=== PATIENT | male | born 1945 | race Caucasian/White ===

== ENCOUNTER → 2017-10-25 08:52 | Day surgery (SDC) | payer MEDICARE, OTHER, SELFPAY ==
--- NOTE | 2017-10-19 10:59 | RAD_ITS ---
STUDY: X-RAY CHEST REASON FOR EXAM: Male, 72 years old. Pacemaker change. TECHNIQUE: PA and lateral views of the chest. COMPARISON: None. FINDINGS: Increased interstitial markings at the lung bases slightly worse on the left side suggestive of scarring. No focal infiltration is seen. Scattered calcified granulomas. There is no demonstrated pleural abnormality. Sternal cerclage wires and vascular clips are present from a prior sternotomy and coronary artery bypass graft procedure (CABG). A left-sided dual-chamber pacemaker is seen. Normal mediastinum and isela. Normal visualized pulmonary arteries. There is atherosclerotic tortuosity of the aortic arch and descending thoracic aorta. There are degenerative changes of the visualized thoracic spine. Normal visualized ribs, clavicles, and shoulders. There is no demonstrated abnormality of the visualized soft tissue structures of the upper abdomen. RAD/Chest PA and Lateral IMPRESSION: Findings suggestive of scarring at the lung bases. Electronically Signed: Ambrosio Mckeon MD at 13:56 EDT Tel [phone], Service support ,
[2017-10-19 11:16] LABS: Bacteria 0 SEEN /hpf (None Seen); Mucous, Urine 0 SEEN /hpf (<or=2+); Red Blood Cells-Urine 0 SEEN /hpf (0-5); Squamous Epithelial Cells - UA 0 SEEN /hpf (0-5)
[2017-10-19 11:54] LABS: Hematocrit 42.1 % (40-54); Hemoglobin 14.1 g/dl (13.0-16.5); Mean Corp Hgb Conc 33.5 g/gl (32-36); Mean Corpuscular Hgb 30.3 pg (27.0-32.0); Mean Corpuscular Volume 90.5 fL (80-94); Mean Platelet Vol. 11.2 fl (6.2-12.0); Platelet Count 144 K/mm3 (150-450); RBC Distribution Width CV 12.7 % (11.6-14.6); RBC Distribution Width SD 41.4 fl (35.1-43.9); Red Blood Count 4.65 M/mm3 (4.6-6.2); Scan Indicated on CBC? Y/N NO; White Blood Count 7.8 K/mm3 (4.4-11.0)
[2017-10-19 11:55] LABS: Color, Urine Yellow (Yellow); Glucose, Dipstick Normal (Normal); Ketone-Dipstick Negative (Negative); Leukocyte Esterase-Dipstick 25 /ul (Negative); Nitrite-Dipstick Negative (Negative); Occult Blood-Urine Negative /ul (Negative); Protein-Dipstick 15 mg/dl (Negative); Urine Bilirubin Dipstick Negative (Negative); Urine Clarity Clear (Clear); Urine Urobilinogen Normal (Normal)
[2017-10-19 12:00] LABS: White Blood Cells 0-5 SEEN /hpf (0-5)
[2017-10-19 12:04] LABS: International Normalized Ratio 1.1; Prothrombin Time (Protime)PT. 14.5 SECONDS (11.7-14.9)
[2017-10-19 12:17] LABS: Anion Gap 4 (5-15); BUN 14 mg/dL (7-18); BUN/Creat Ratio 16.1 RATIO (10-20); Calcium,Total 9.1 mg/dL (8.5-10.1); Chloride 107 mmol/L (98-107); Creatinine, Serum 0.87 mg/dL (0.70-1.30); EST Glomerular Filtration Rate 92 mL/min (>60); Est Glom Filt Rate - Afr Amer 112 mL/min (>60); Glucose 134 mg/dL (74-106); Sodium Level 143 mmol/L (136-145)
[2017-10-22 11:15] VITALS: BMI 25.5
--- NOTE | 2017-10-25 11:47 | CL.IE_ITS ---
Patient: MARTIN GOFF Study Date: 10/25/2017 Performing: Neto Almeida MD : [id number] Age: 72 Gender: male PROCEDURES PERFORMED [id number] REMOVAL+REPLACEMENT PACER-DUAL LEAD INDICATIONS Sinoatrial node dysfunction/Sick sinus syndrome PROCEDURE DETAILS The patient was brought to the Catheterization Lab in the postabsorptive nonsedated state. Informed consent was obtained prior to the procedure. Local anesthetic was given subcutaneously to the left up per chest area with Lidocaine 2%. Incision was made to the left upper chest. PPM generator was remove d. PPM generator was then interrogated by the lead programmer. Device pocket was irrigated with antibiotic . PPM generator was attached to the lead(s) and inserted into the pocket. The PPM generator was sutur ed in place with 3-0 Vicryl. Subcutaneous closure was completed with 3-0 Vicryl. Skin closure was com pleted with 4-0 Vicryl. Steri-strips applied to left subclavicular incision. The patient tolerated t he procedure well. Estimated Blood Loss: 10 ml's IMPLANTED / EX-PLANTED DEVICES IMPLANTED DEVICE(S): PPM Generator - Ticket Broker: Tr[employer], Model #[id number] , Serial #[id number] DEVICE PARAMETERS DEVICE PARAMETERS: Mode- DDD Lower rate- 60 Upper rate- 130 CONCLUSIONS / RECOMMENDATIONS Device Conclusions: Successful implantation of a dual chamber pacemaker battery change and replacemen t Device Recommendations: Follow up with Primary Care Physician PROCEDURE MEDICATIONS Versed 1 mg IV Fentanyl 50 mcg IV Oxygen: 2 L/min via nasal cannula Antibiotic given in appropriate timeframe. Ancef 2 Gm IV @ 10/25/2017 10:52:40 Signed By Neto Almeida MD On 10/25/2017 11:46:43 Neto Almeida MD
== END ==
PROVIDERS: Internal Medicine Cardiovascular Disease; Visit Provider Internal Medicine Cardiovascular Disease
DX: Z45.010 Encounter for checking and testing of cardiac pacemaker pulse generator [battery] (principal); I25.10 Atherosclerotic heart disease of native coronary artery without angina pectoris; E78.5 Hyperlipidemia, unspecified; I49.5 Sick sinus syndrome; Z87.891 Personal history of nicotine dependence; Z95.1 Presence of aortocoronary bypass graft; Z79.82 Long term (current) use of aspirin; Z79.899 Other long term (current) drug therapy; Z00.6 Encounter for examination for normal comparison and control in clinical research program
CPT/HCPCS: 33228; 36415; 71046; 80048; 81001; 85027; 85610; 99152; 99153; J7040; J7050

== ENCOUNTER 2021-06-13 18:24 | Emergency (ER) | payer MEDICARE, OTHER, SELFPAY ==
[2021-06-13 18:24] VITALS: BP 143/85; PULSE 71; RESP 15; TEMP 36; O2SAT 95; BMI 22.9
--- NOTE | 2021-06-13 18:34 | RAD_ITS ---
STUDY: X-RAY - LEFT HAND, ATTENTION FIFTH FINGER REASON FOR EXAM: Male, 76 years old. LACERATION WITH BANDSAW TECHNIQUE: 3 view(s) of the finger were obtained. COMPARISON: June 15, 2015 FINDINGS: A small acute oblique nondisplaced fracture is present in the distal one third shaft of the proximal phalanx of the fifth digit. The soft tissues of the fourth and fifth digits are mildly swollen. Normal metacarpal head. Normal metacarpophalangeal joint. Normal middle phalanx. Normal distal phalanx. Normal proximal interphalangeal joint. Normal distal interphalangeal joint. RAD/Finger(s) Min 2 Views IMPRESSION: 1. small acute oblique nondisplaced fracture in the distal one third shaft of the proximal phalanx of the fifth digit. Electronically Signed: Eric Corado MD at 19:10 EST , Service support ,
[2021-06-13] MEDS: Cephalexin 250 MG Capsule 500 MG PO (19:51)
[2021-06-13] MEDS: Diphth,Pertuss(Acell),Tet Vac 0.5 ML Vial IM (19:51)
--- NOTE | 2021-06-13 20:17 | EDS_ITS ---
HPI History of Present Illness Chief Complaint: Laceration Detail of Chief Complaint: Left fifth finger laceration Informant: patient Occured/Mechanism Comment: Cut on band saw Onset/Context/Timing Onset: Today Current Severity: Mild Maximum Severity: Mild Associated Symptoms Associated Symptoms: Negative for Parasthesia, Weakness and Loss of Funtion Narrative Narrative: Patient presents with a laceration to the left fifth finger. He was cutting out a piece of wood on a band saw. He states it got bound up and he pushed it through and got his hand caught on the blade. He is unsure of his last tetanus update. He is right-hand dominant. Tetanus Immunization: Unknown [facility] Medical History Atherosclerotic heart disease of [place] coronary artery without angina pectoris Hyperlipidemia Sick sinus syndrome Home Medications aspirin 81 mg tablet,delayed release 81 mg PO QDAY 07/09/17 [History Last Taken Unknown] atenolol 50 mg tablet 50 mg PO BID tab 07/09/17 [History Last Taken 10/25/17] atorvastatin 40 mg tablet 40 mg PO QDAY 07/09/17 [History Last Taken Unknown] losartan 50 mg tablet 50 mg PO QDAY 07/09/17 [History Last Taken 10/25/17] omega-3 acid ethyl esters 1 gram capsule 1 g PO QDAY 07/09/17 [History Last Taken Unknown] escitalopram oxalate 10 mg tablet 10 mg PO QDAY 07/12/17 [History Last Taken Unknown] faleycgs-fhl-niyqy acid 300 mcg-lycopene 600 mcg-lutein 300 mcg tablet 1 tab PO DAILY 07/12/17 [History Last Taken Unknown] bupropion HCl 150 mg tablet,12 hr sustained-release 150 mg PO DAILY tab 06/10/20 [History Last Taken Unknown] sildenafil 50 mg tablet 25 mg PO DAILY PRN #14 tab 06/10/20 [Rx Last Taken Unknown] tamsulosin 0.4 mg capsule 0.4 mg PO QHS 06/10/20 [History Last Taken Unknown] cholecalciferol (vitamin D3) 125 mcg (5,000 unit) tablet 125 mcg PO DAILY 12/16/20 [History Last Taken Unknown] cephalexin 500 mg PO 4X/DAY 7 Days #28 cap 06/13/21 [Rx Last Taken Unknown] Allergy/AdvReac Type Severity Reaction Status Date / Time Lisiniopril AdvReac Intermediate cough Uncoded 06/13/21 18:26 Family History Father , Age 76 Myocardial infarction CAD (coronary artery disease) Mother , Age 63, breast cancer Breast cancer Sister Diabetes benign tumor in brain removed Surgical History Cardiac pacemaker in situ History of coronary artery bypass graft x 3 (~10/16/90) History of left heart catheterization Stented coronary artery (~06/29/12) Social History Smoking Status: Former smoker pack-years: 25 alcohol intake: current alcohol intake frequency: holidays/special occasions only substance use type: does not use caffeine: Yes Type: coffee Number of servings: 2 what type of physical activity do you participate in: none ROS ROS ED Constitutional Constitutional ED: Denies chills or fever(s) Eyes Eyes: Denies change in vision ENT ENT ED: Denies sore throat Cardiovascular Cardiovascular: Denies chest pain Respiratory/Chest Respiratory/Chest: Denies cough or dyspnea Gastrointestinal Gastrointestinal: Denies abdominal pain Musculoskeletal Musculoskeletal: Reports other Details: Left fifth finger pain ; Denies back pain Integumentary Reports other Details: Left fifth finger laceration ; Denies rash Neurologic Neurologic: Denies headache(s), paresthesias or weakness Allergic/Immunologic Allergic/Immunologic ED: Denies urticaria EXAM Physical Exam Const Vital Signs: 06/13/21 18:24 Temperature 96.8 F L Temperature Source Temporal Pulse Rate 71 Respiratory Rate 15 Blood Pressure 143/85 H Blood Pressure Mean 104 Pulse Ox 95 Oxygen Delivery Method Room Air Positive well nourished and well developed General Appearance ED: well developed HEENT atraumatic Eyes PERRL and EOMs intact bilaterally Neck supple Chest Wall inspection of chest normal and palpation of chest normal Resp normal respiratory effort and clear to auscultation bilaterally Cardio regular rate and regular rhythm GI non-tender Palpation: soft Extremity Extremity Narrative: 3 cm laceration along the ulnar aspect of the left fifth finger. Full range of motion of all digits. Good cap refill and sensation distally. Neuro oriented x3 and no sensory deficits noted Sensorium / Orientation: alert Motor Exam: strength 5/5 throughout Skin Skin Narrative: Laceration as noted above MDM MDM MDM Narrative Medical decision making narrative: Finger x-ray obtained per nursing protocol. Tetanus update ordered Radiography Diagnostic Testing: Clinical Impression(s) from Imaging Studies Finger X-Ray 06/13/21 18:34 IMPRESSION: 1. small acute oblique nondisplaced fracture in the distal one third shaft of the proximal phalanx of the fifth digit. Electronically Signed: Eric Corado MD at 19:10 EST , Service support , Treatment and Re-Evaluation Comments:: Patient does have evidence of bony injury on x-ray. Wound is anesthetized with 5 cc 1% lidocaine in a digital block. Wound is irrigated and closed with 9 simple interrupted sutures of 5-0 nylon. Dressing applied. Patient advised to have sutures removed in 1 week. Patient will be covered with Keflex secondary to the bony injury. Procedures Lacerations Left fifth finger laceration: Length: 1.18 in Depth: Sub Q Shape: Flap Prep: Vijay Laceration repair: Digital block, Irrigated and Lidocaine Number of Sutures/Dunnegan: 9 Suture Information: Ethilon, Simple and 5-0 Discharge Plan Triage Chief Complaint: Laceration ED Provider: Melanie Brown Dx/Rx/DC Orders Clinical Impression: Finger laceration Instructions: ED Laceration, Hand: All Closures Prescriptions: New cephalexin 500 mg capsule 500 mg PO 4X/DAY 7 Days Qty: 28 RF: 0 No Action atenolol 50 mg tablet 50 mg PO BID RF: 0 aspirin [Adult Aspirin Regimen] 81 mg tablet,delayed release (DR/EC) 81 mg PO QDAY RF: 0 losartan 50 mg tablet 50 mg PO QDAY RF: 0 omega-3 acid ethyl esters 1 gram capsule 1 g PO QDAY RF: 0 atorvastatin 40 mg tablet 40 mg PO QDAY RF: 0 bupropion HCl 150 mg tablet sustained-release 12 hr 150 mg PO DAILY RF: 0 mcagtszp-upy-FV-lycopen-lutein [Centrum Silver Men] 300-600-300 mcg tablet 1 tab PO DAILY RF: 0 escitalopram oxalate 10 mg tablet 10 mg PO QDAY RF: 0 tamsulosin 0.4 mg capsule 0.4 mg PO QHS RF: 0 sildenafil [Viagra] 50 mg tablet 25 mg PO DAILY PRN (Reason: sexual activity) Qty: 14 RF: 3 cholecalciferol (vitamin D3) 125 mcg (5,000 unit) tablet 125 mcg PO DAILY RF: 0 [facility] [facility] [Primary [facility] Provider] - 7 Days for suture removal Disposition Disposition: Home, Self Care Discharge Date/Time: 06/13/21 20:46
[2021-06-13] MEDS: Lidocaine 1% (20 ml mdv) 20 ML Vial INFILT (20:38)
== END 2021-06-13 20:46 | disposition home or self-care (01) ==
PROVIDERS: Emergency Provider Emergency Medicine; Visit Provider Emergency Medicine
DX: S61.217A Laceration without foreign body of left little finger without damage to nail, initial encounter (principal); I49.5 Sick sinus syndrome; E78.5 Hyperlipidemia, unspecified; Z87.891 Personal history of nicotine dependence; I25.10 Atherosclerotic heart disease of native coronary artery without angina pectoris; W29.8XXA Contact with other powered hand tools and household machinery, initial encounter; Y93.9 Activity, unspecified; Y92.9 Unspecified place or not applicable; Z79.899 Other long term (current) drug therapy; Z79.82 Long term (current) use of aspirin; Z95.1 Presence of aortocoronary bypass graft; Z95.0 Presence of cardiac pacemaker; Z23 Encounter for immunization; S62.637A Displaced fracture of distal phalanx of left little finger, initial encounter for closed fracture
CPT/HCPCS: 12002; 73140; 90471; 90715; 99283

== ENCOUNTER 2021-09-15 06:42 | Inpatient (IN) | payer MEDICARE, OTHER, SELFPAY ==
[2021-09-15] VITALS (17 sets, daily range): BP systolic 86–139; BP diastolic 57–95; PULSE 60–91; RESP 12–18; TEMP 36.4–37.1; O2SAT 96–100; BMI 23.6
--- NOTE | 2021-09-15 07:12 | EKG12_ITS ---
Test Reason : CHEST PAIN Blood Pressure : / mmHG Vent. Rate : 075 BPM Atrial Rate : 072 BPM P-R Int : 312 ms QRS Dur : 110 ms QT Int : 426 ms P-R-T Axes : 000 -03 054 degrees QTc Int : 475 ms Atrial-paced rhythm with prolonged AV conduction with occasional Premature ventricular complexes Nonspecific ST and T wave abnormality Prolonged QT Abnormal ECG Confirmed by KEVIN LYNN, VALERIANO ([id number]), supervising editor news reel GEMA AMADOR ([id number]) on 09/17/2021 11:33:52 AM Referred By: VISH Confirmed By:VALERIANO BROWN MD
--- NOTE | 2021-09-15 07:16 | RAD_ITS ---
INDICATION: chest pain EXAMINATION/TECHNIQUE: X-RAY - XR Chest 1 View COMPARISON: 10/19/2017 FINDINGS: LINES/DEVICES: Left chest dual-lead pacemaker remains in similar position. LUNGS: Bilateral increased peripheral interstitial markings, similar compared to the prior. No consolidation, edema or effusion. No pneumothorax. MEDIASTINUM AND CARDIOVASCULAR STRUCTURES: Surgical changes in the mediastinum again seen. BONES AND SOFT TISSUES: Unremarkable. RAD/Chest 1 View (Portable) IMPRESSION: Bilateral increased peripheral interstitial markings, similar compared to the prior, likely representing chronic interstitial fibrotic changes are chronic inflammatory changes. Electronically Signed: Carl Coello MD at 7:47 EDT ,
--- NOTE | 2021-09-15 07:17 | EDS_ITS ---
HPI History of Present Illness Chief Complaint: Chest Pain Informant: patient Onset/Context/Timing Onset: Hours (0.5-1) Activity at onset: - (Awoke this morning with Discomfort) Timing: Continuous Quality: Positive for Pain Location: Left Chest Current Severity: Mild Maximum Severity: Severe Worsened By: Nothing; Not Worsened By Exertion, Movement of Arm, Movement of Torso, Eating, Palpation and Breathing Relieved By: Nothing (unclear if anything in particular) Associated Symptoms: Positive for Diaphoresis (this AM); Negative for Nausea, Vomiting, Dyspnea, Cough, Lightheadedness and Palpitations Narrative Narrative: Patient states he has been having these episodes of isolated left lateral chest discomfort near or beneath his pacemaker for months and I have learned to live with it but this morning the discomfort was so intense that it made him feel a little sweaty and he presents to the emergency department for evaluation out of concern for his history of coronary disease and a bypass that was around 30 years ago. No recent illness. 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 He states the discomfort has lessened now, but still there very mildly. He states that the discomfort does not occur very frequently, maybe once every couple weeks or a month, and he is not sure if position changes make it better or worse, if it occurs more at nighttime or during the day more often. Prior Similar Symptoms: Yes Recent Illness/Hospitalization: No [facility] Medical History (Updated 09/15/21 @ 10:[address] Jamarcus Michael MD) Atherosclerotic heart disease of [place] coronary artery without angina pectoris Hyperlipidemia Sick sinus syndrome Home Medications aspirin 81 mg tablet,delayed release 81 mg PO QHS 07/09/17 [History Last Taken Unknown] atenolol 50 mg tablet 50 mg PO BID tab 07/09/17 [History Last Taken 10/25/17] atorvastatin 40 mg tablet 40 mg PO QHS 07/09/17 [History Last Taken Unknown] losartan 50 mg tablet 50 mg PO QHS 07/09/17 [History Last Taken 10/25/17] omega-3 acid ethyl esters 1 gram capsule 1 g PO QHS 07/09/17 [History Last Taken Unknown] escitalopram oxalate 10 mg tablet 10 mg PO DAILY 07/12/17 [History Last Taken Unknown] nmerhvqt-sha-secyu acid 300 mcg-lycopene 600 mcg-lutein 300 mcg tablet 1 tab PO DAILY 07/12/17 [History Last Taken Unknown] bupropion HCl 150 mg tablet,12 hr sustained-release 150 mg PO DAILY tab 06/10/20 [History Last Taken Unknown] tamsulosin 0.4 mg capsule 0.4 mg PO QHS 06/10/20 [History Last Taken Unknown] cholecalciferol (vitamin D3) [Vitamin D3] 25 mcg PO QHS 09/15/21 [History Last Taken Unknown] fluticasone propionate 2 spray INTRANASAL DAILY 09/15/21 [History Last Taken Unknown] Allergy/AdvReac Type Severity Reaction Status Date / Time Lisiniopril AdvReac Intermediate cough Uncoded 09/15/21 06:46 Family History Father , Age 76 Myocardial infarction CAD (coronary artery disease) Mother , Age 63, breast cancer Breast cancer Sister Diabetes benign tumor in brain removed Surgical History Cardiac pacemaker in situ History of coronary artery bypass graft x 3 (~10/16/90) History of left heart catheterization Stented coronary artery (~06/29/12) Social History Smoking Status: Former smoker pack-years: 25 alcohol intake: current alcohol intake frequency: holidays/special occasions only substance use type: does not use caffeine: Yes Type: coffee Number of servings: 2 what type of physical activity do you participate in: none ROS ROS ED Constitutional Constitutional ED: Denies chills or fever(s) Eyes Eyes: Denies change in vision or diplopia ENT ENT ED: Denies rhinorrhea or sore throat Cardiovascular Cardiovascular: Reports chest pain; Denies palpitations Respiratory/Chest Respiratory/Chest: Denies cough or dyspnea Gastrointestinal Gastrointestinal: Denies abdominal pain, diarrhea, nausea or vomiting Genitourinary Genitourinary ED: Denies dysuria or hematuria Musculoskeletal Musculoskeletal: Denies back pain or neck pain Integumentary Denies abscess or rash Neurologic Neurologic: Denies headache(s), paresthesias or weakness Psychiatric Psychiatric: Denies anxiety or suicidal thoughts EXAM Physical Exam Const Vital Signs: 09/15/21 06:43 09/15/21 06:46 09/15/21 07:30 Temperature 97.5 F L Temperature Source Oral Pulse Rate 91 65 Respiratory Rate 18 Respiratory Effort Normal Non-Labored Respiratory Pattern Normal Blood Pressure 132/95 H 116/75 Blood Pressure Mean 107 88 Pulse Ox 98 Oxygen Delivery Method Room Air Oxygen Flow Rate (L/min) 09/15/21 07:32 09/15/21 08:00 09/15/21 08:14 Temperature Temperature Source Pulse Rate 70 61 Respiratory Rate Respiratory Effort Respiratory Pattern Blood Pressure 137/77 H 130/76 H Blood Pressure Mean 97 Pulse Ox 97 98 Oxygen Delivery Method Room Air Room Air Oxygen Flow Rate (L/min) 09/15/21 08:27 09/15/21 09:00 09/15/21 10:00 Temperature Temperature Source Pulse Rate 63 60 Respiratory Rate 12 13 Respiratory Effort Respiratory Pattern Blood Pressure 97/70 106/75 116/83 H Blood Pressure Mean 79 85 94 Pulse Ox 96 99 Oxygen Delivery Method Nasal Cannula Nasal Cannula Oxygen Flow Rate (L/min) 2 2 Positive well nourished and well developed General Appearance ED: well developed and NAD HEENT Reports moist mucous membranes normocephalic and atraumatic Eyes PERRL and EOMs intact bilaterally Neck full ROM and supple Resp normal respiratory effort and clear to auscultation bilaterally Cardio regular rate, regular rhythm, no murmurs and no JVD Rate: Negative for bradycardia or tachycardic GI non-tender and non-distended Auscultation: normoactive bowel sounds Palpation: soft Back/Spine no CVA tenderness General Back: other FROM Extremity normal to inspection, no calf tenderness and no pedal edema General Extremety ED: Negative for edema, pulses abnormal or tenderness General Extremity: Negative for edema or pulses abnormal Neuro oriented x3, CN's II-XII intact bilaterally and no sensory deficits noted Sensorium / Orientation: awake and alert Motor Exam: strength 5/5 throughout Skin no rashes or lesions noted and no wounds Heart Score History: Slightly/Non-Suspicious ECG: Nonspecific Repolarization Age: >/= 65 years Risk Factors: >/= 3 Risk Factors or History of CAD Troponin: >1 - <3 Normal Limit Score: 6 MDM MDM MDM Narrative Medical decision making narrative: ThePatient was given aspirin while we were awaiting testing, his pain then ramped up about an hour after initial evaluation, he said it was an 8/10. We repeated his EKG, did not show any acute signs of ischemia or changes compared with the prior, the second EKG was of better quality than the first. We gave him a nitroglycerin sublingual, he st ates the pain improved to a 6/10 but his systolic blood pressure went down to 97 although he was asymptomatic from it we held off on giving any more nitroglycerin since he was clinically stable otherwise. His troponin is slightly elevated. I discussed with cardiology, Dr. Almeida was on. He advise getting the delta and touching base again which we did, troponin went up from 89 to 118. The second EKG which was performed when his chest discomfort got worse, was unchanged, he ended up taking me up on an offer for some morphine, he still had chest discomfort, but the third EKG is showing some ST depressions in the septal lateral leads precordial. I discussed again with Dr. Almeida, we decided to give him some nitroglycerin paste, put him on a heparin drip, and admit him to PCU for further evaluation. Lab Data Attestation: I reviewed the patient's lab results. Labs: Laboratory Results - last 24 hr 09/15/21 09/15/21 09/15/21 06:55 06:55 06:55 WBC 8.4 RBC 4.85 Hgb 15.0 Hct 43.6 MCV 89.9 MCH 30.9 MCHC 34.4 RDW Std Deviation 39.9 RDW Coeff of Hannah 12.2 Plt Count 161 MPV 11.3 Immature Gran % (Auto) 0.200 Neut % (Auto) 54.7 Lymph % (Auto) 30.7 [place] % (Auto) 11.6 H Eos % (Auto) 2.3 Baso % (Auto) 0.5 Absolute Neuts (auto) 4.6 Absolute Lymphs (auto) 2.56 Nucleated RBC % 0 Sodium 136 Potassium 4.5 Chloride 107 Carbon Dioxide 26.0 Anion Gap 3 L BUN 18 Creatinine 0.97 Estim Creat Clear Calc 68.99 Est GFR (MDRD) Af Amer 97 Est GFR (MDRD) Non-Af 81 BUN/Creatinine Ratio 18.6 Glucose 135 H Calcium 8.9 Troponin I High Sens 89 H 09/15/21 09:50 WBC RBC Hgb Hct MCV MCH MCHC RDW Std Deviation RDW Coeff of Hannah Plt Count MPV Immature Gran % (Auto) Neut % (Auto) Lymph % (Auto) [place] % (Auto) Eos % (Auto) Baso % (Auto) Absolute Neuts (auto) Absolute Lymphs (auto) Nucleated RBC % Sodium Potassium Chloride Carbon Dioxide Anion Gap BUN Creatinine Estim Creat Clear Calc Est GFR (MDRD) Af Amer Est GFR (MDRD) Non-Af BUN/Creatinine Ratio Glucose Calcium Troponin I High Sens 118 H Radiography Diagnostic Testing: Clinical Impression(s) from Imaging Studies Chest X-Ray 09/15/21 07:16 IMPRESSION: Bilateral increased peripheral interstitial markings, similar compared to the prior, likely representing chronic interstitial fibrotic changes are chronic inflammatory changes. Electronically Signed: Carl Coello MD at 7:47 EDT , Rhythm Strip Rhythm Strip: Sinus Rhythm (vs atrial pacing) Rate: 70 Ectopy: None EKG Initial EKG: Attestation: I personally reviewed and interpreted this EKG as follows: Interpretation: No Acute Injury Pattern, AV Block (1st deg) and Non- Specific ST Changes (vs. artifact I/aVL; no ST segment deviations) Comments: atrial pacing Prior EKG tracings: available for review (2018) Prior: Changed (but prior appears to have ventricular pacing) Follow-up EKG: Attestation: I personally reviewed and interpreted this EKG as follows: Interpretation: No Acute Injury Pattern (No ST segment deviations. No ectopy.) Comments: Atrial paced Prior EKG tracings: available for review (Approximately 1 hour prior) Prior: Unchanged 3rd EKG at time of 2nd tpn: Attestation: I personally reviewed and interpreted this EKG as follows: Interpretation: Paced (atrial) and S-T Depression (< 1mm, V3-5, without LUANNE) Critical Care Time Critical Care Time: Yes Critical care time (excluding procedures): 30-74 minutes (32 min), Including time spent:, Discussing w/Patient &/or Family/Shuttlecock Feather Trimmer, Discussing w/Consultants, Arranging Admission or Transfer and Performing Direct Patient Care at Bedside Discharge Plan Dx/Rx/DC Orders Clinical Impression: Unstable angina Disposition Disposition: Acute Care [facility]
[2021-09-15 07:28] LABS: Absolute Lymphocyte Count 2.56 X10^3/uL (0.83-4.51); Absolute Neutrophil Count 4.6 X10^3/uL (2.0-7.7); Basophil# 0.04 X10^3/uL; Basophil% 0.5 % (0-1); Eosinophil# 0.19 X10^3/uL; Eosinophils% 2.3 % (0-5); Hematocrit 43.6 % (40-54); Lymphocyte # 2.56 X10^3/ul (0.83-4.51); Lymphocyte % 30.7 % (19-41); Mean Corp Hgb Conc 34.4 g/dL (32-36); Mean Corpuscular Hgb 30.9 pg (27.0-32.0); Mean Corpuscular Volume 89.9 fL (80-94); Mean Platelet Vol. 11.3 fl (6.2-12.0); Monocyte# 0.97 X10^3/uL; Monocyte% 11.6 % (0-10); NRBC Flagged by Analyzer 0 % (0-5); Neutrophil # 4.57 X10^3/uL (2.7-7.7); Neutrophil % 54.7 % (47-70); Platelet Count 161 K/mm3 (150-450); RBC Distribution Width CV 12.2 % (11.6-14.6); RBC Distribution Width SD 39.9 fl (35.1-43.9); Red Blood Count 4.85 M/mm3 (4.6-6.2); White Blood Count 8.4 K/mm3 (4.4-11.0)
[2021-09-15] MEDS: Aspirin 81 MG TAB.CHEW 324 MG PO (07:30)
[2021-09-15 07:40] LABS: Anion Gap 3 (5-15); BUN 18 mg/dL (7-18); BUN/Creat Ratio 18.6 RATIO (10-20); Calcium,Total 8.9 mg/dL (8.5-10.1); Chloride 107 mmol/L (98-107); Creatinine, Serum 0.97 mg/dL (0.70-1.30); EST Glomerular Filtration Rate 81 mL/min (>60); Est Glom Filt Rate - Afr Amer 97 mL/min (>60); Estimated Creatinine Clearance 68.99 ml/min; Glucose 135 mg/dL (74-106); Potassium 4.5 mmol/L (3.5-5.1); Sodium Level 136 mmol/L (136-145)
[2021-09-15 08:06] LABS: Troponin-I HS (w/2H Reflex) 89 pg/mL (3.0-78.0)
--- NOTE | 2021-09-15 08:07 | EKG12_ITS ---
Test Reason : CHEST PAIN Blood Pressure : / mmHG Vent. Rate : 061 BPM Atrial Rate : 061 BPM P-R Int : 314 ms QRS Dur : 108 ms QT Int : 432 ms P-R-T Axes : 000 -08 060 degrees QTc Int : 434 ms Atrial-paced rhythm with prolonged AV conduction Nonspecific ST abnormality Abnormal ECG Confirmed by KEVIN LYNN, VALERIANO ([id number]), associate entertainment editor GEMA AMADOR ([id number]) on 09/17/2021 11:34:11 AM Referred By: VISH Confirmed By:VALERIANO BROWN MD
[2021-09-15] MEDS: Nitroglycerin SL (ED/IMG/CATH) 0.4 MG TABLET SL (08:14)
--- NOTE | 2021-09-15 08:16 | ED.RN ---
Pt c/o 01/14 LT sided chest pain. No radiation, no shortness of breath. VSS. Dr Michael made aware. EKG obtained. Nitro SL x1 given.
--- NOTE | 2021-09-15 08:27 | ED.RN ---
Pt rates chest pain 6/10, states Nitro helped. Dr Michael in room to update pt on plan. VSS.
[2021-09-15 09:45] LABS: Reflex Troponin-HS? (from REC) Y
[2021-09-15] MEDS: Morphine 2 MG/ML Syringe IV (10:15)
[2021-09-15 10:29] LABS: Troponin-I HS 118 pg/mL (3.0-78.0)
[2021-09-15 11:37] LABS: International Normalized Ratio 1.1; Prothrombin Time (Protime)PT. 13.6 SECONDS (11.7-14.9)
[2021-09-15] MEDS: Heparin 10,000 UNITS/10 ML Vial 4000 UNITS IV (11:41)
[2021-09-15] MEDS: Nitroglycerin Oint 1 INCH PACKET TD (11:42)
[2021-09-15 11:49] LABS: Partial Thromboplast Time 29.5 Seconds (24.1-36.2)
--- NOTE | 2021-09-15 13:13 | PCM.HP.STD ---
Documented by User: Margareth Blevins NP, NURSING TECHNICIAN-C 09/15/21 13:34 HPI - General General Date of Admission: 09/15/21 HPI Narrative MARTIN GOFF, is a 76 M who presents to the emergency room due to chest pain. Patient states he has had intermittent chest pain for years however when he woke up this morning, his pain was significantly worse than normal. He reports a burning/pressure sensation which is currently 8 out of 10. Pain does not radiate. He reports consistent pain on the left side of his chest. He denies shortness of breath, diaphoresis or other associated symptoms. He denies any aggravating or alleviating factors. Pain is continuous. He has a past medical history of CAD with history of PCI/CABG, sick sinus syndrome status post pacemaker placement, hypertension, hyperlipidemia, depression/anxiety, BPH. [facility] Medical History Atherosclerotic heart disease of [place] coronary artery without angina pectoris Hyperlipidemia Sick sinus syndrome Home Medications aspirin 81 mg tablet,delayed release 81 mg PO QHS 07/09/17 [History Last Taken Unknown] atenolol 50 mg tablet 50 mg PO BID tab 07/09/17 [History Last Taken 10/25/17] atorvastatin 40 mg tablet 40 mg PO QHS 07/09/17 [History Last Taken Unknown] losartan 50 mg tablet 50 mg PO QHS 07/09/17 [History Last Taken 10/25/17] omega-3 acid ethyl esters 1 gram capsule 1 g PO QHS 07/09/17 [History Last Taken Unknown] escitalopram oxalate 10 mg tablet 10 mg PO DAILY 07/12/17 [History Last Taken Unknown] waqdvrzh-ghp-nvawy acid 300 mcg-lycopene 600 mcg-lutein 300 mcg tablet 1 tab PO DAILY 07/12/17 [History Last Taken Unknown] bupropion HCl 150 mg tablet,12 hr sustained-release 150 mg PO DAILY tab 06/10/20 [History Last Taken Unknown] tamsulosin 0.4 mg capsule 0.4 mg PO QHS 06/10/20 [History Last Taken Unknown] cholecalciferol (vitamin D3) [Vitamin D3] 25 mcg PO QHS 09/15/21 [History Last Taken Unknown] fluticasone propionate 2 spray INTRANASAL DAILY 09/15/21 [History Last Taken Unknown] Allergy/AdvReac Type Severity Reaction Status Date / Time Lisiniopril AdvReac Intermediate cough Uncoded 09/15/21 06:46 Family History Father , Age 76 Myocardial infarction CAD (coronary artery disease) Mother , Age 63, breast cancer Breast cancer Sister Diabetes benign tumor in brain removed Surgical History Cardiac pacemaker in situ History of coronary artery bypass graft x 3 (~10/16/90) History of left heart catheterization Stented coronary artery (~06/29/12) Social History Smoking Status: Former smoker pack-years: 25 alcohol intake: current alcohol intake frequency: holidays/special occasions only substance use type: does not use caffeine: Yes Type: coffee Number of servings: 2 what type of physical activity do you participate in: none ROS Constitutional Constitutional: Denies change in weight, chills, fatigue, fever(s) or weakness Cardiovascular Cardiovascular: Reports chest pain; Denies edema, lightheadedness, palpitations or syncope Respiratory/Chest Respiratory/Chest: Denies cough, dyspnea, productive cough, shortness of breath at rest, shortness of breath with exertion or wheezing Gastrointestinal Gastrointestinal: Denies abdominal pain, constipation, diarrhea, nausea or vomiting Genitourinary Genitourinary: Denies burning urination, difficulty urinating, dysuria, hematuria, urinary frequency, urinary incontinence or urinary urgency Musculoskeletal Musculoskeletal: Denies back pain, joint pain or muscle weakness Integumentary Integumentary: Denies erythema, lesions, rash or wounds Neurologic Neurologic: Denies abnormal speech, confusion, dizziness, focal weakness, numbness, paresthesias, seizure-like activity or syncope Psychiatric Psychiatric: Denies anxiety or depression Hematologic/Lymphatic Hematologic/Lymphatic: Denies anemia, easy bleeding or easy bruising Allergic/Immunologic Allergic/Immunologic: Denies hives or asthma Vital Signs Vital Signs Vital Signs: 09/15/21 06:43 09/15/21 06:46 09/15/21 07:30 Temperature 97.5 F L Temperature Source Oral Pulse Rate 91 65 Respiratory Rate 18 Respiratory Effort Normal Non-Labored Respiratory Pattern Normal Blood Pressure 132/95 H 116/75 Blood Pressure [BP] Blood Pressure Mean 107 88 Blood Pressure Mean [BP] Blood Pressure Source [BP] Blood Pressure Position [BP] Blood Pressure Location [BP] Pulse Ox 98 Oxygen Delivery Method Room Air Oxygen Flow Rate (L/min) 09/15/21 07:32 09/15/21 08:00 09/15/21 08:14 Temperature Temperature Source Pulse Rate 70 61 Respiratory Rate Respiratory Effort Respiratory Pattern Blood Pressure 137/77 H 130/76 H Blood Pressure [BP] Blood Pressure Mean 97 Blood Pressure Mean [BP] Blood Pressure Source [BP] Blood Pressure Position [BP] Blood Pressure Location [BP] Pulse Ox 97 98 Oxygen Delivery Method Room Air Room Air Oxygen Flow Rate (L/min) 09/15/21 08:27 09/15/21 09:00 09/15/21 10:00 Temperature Temperature Source Pulse Rate 63 60 Respiratory Rate 12 13 Respiratory Effort Respiratory Pattern Blood Pressure 97/70 106/75 116/83 H Blood Pressure [BP] Blood Pressure Mean 79 85 94 Blood Pressure Mean [BP] Blood Pressure Source [BP] Blood Pressure Position [BP] Blood Pressure Location [BP] Pulse Ox 96 99 Oxygen Delivery Method Nasal Cannula Nasal Cannula Oxygen Flow Rate (L/min) 2 2 09/15/21 11:00 09/15/21 11:42 09/15/21 11:47 Temperature 98.4 F Temperature Source Temporal Pulse Rate 65 63 65 Respiratory Rate 17 12 Respiratory Effort Respiratory Pattern Blood Pressure 139/81 H 124/79 H 139/86 H Blood Pressure [BP] Blood Pressure Mean 100 103 Blood Pressure Mean [BP] Blood Pressure Source [BP] Blood Pressure Position [BP] Blood Pressure Location [BP] Pulse Ox 97 99 Oxygen Delivery Method Nasal Cannula Nasal Cannula Oxygen Flow Rate (L/min) 2 2 09/15/21 11:54 Temperature Temperature Source Pulse Rate 71 Respiratory Rate 18 Respiratory Effort Respiratory Pattern Blood Pressure Blood Pressure [BP] 116/77 Blood Pressure Mean Blood Pressure Mean [BP] 90 Blood Pressure Source [BP] Monitor Blood Pressure Position [BP] Semi-Fowlers Blood Pressure Location [BP] Right Arm Pulse Ox 100 Oxygen Delivery Method Room Air Oxygen Flow Rate (L/min) Weight Weight: 164 lb 3.91 oz Body Mass Index (BMI) 23.6 Physical Exam Const alert, oriented x3 and no apparent distress Orientation / Consciousness: awake, oriented to person, oriented to place and oriented to time HEENT normocephalic and moist oral mucous membranes Eyes PERRL, EOMs intact bilaterally and conjunctivae normal Neck no lymphadenopathy Resp normal respiratory effort and clear to auscultation bilaterally Cardio regular rate, regular rhythm and no murmurs Peripheral Pulses: pulses 2+ throughout GI normal to inspection, nondistended, normoactive bowel sounds, non-tender and non-distended Extremity normal to inspection Skin no rashes or lesions noted Lesions: no lesions Rashes: no rashes Trauma: no lacerations or abrasions Neuro CN's II-XII intact bilaterally, no focal motor deficits, no sensory deficits noted and deep tendon reflexes 2+ bilaterally Psych mental status grossly normal and affect normal Results Lab / Micro Data Result Diagrams: 09/15/21 06:55 09/15/21 06:55 Labs: Laboratory Results - last 24 hr 09/15/21 06:55: WBC 8.4, RBC 4.85, Hgb 15.0, Hct 43.6, MCV 89.9, MCH 30.9, MCHC 34.4, RDW Std Deviation 39.9, RDW Coeff of Hannah 12.2, Plt Count 161, MPV 11.3, Immature Gran % (Auto) 0.200, Neut % (Auto) 54.7, Lymph % (Auto) 30.7, [place] % (Auto) 11.6 H, Eos % (Auto) 2.3, Baso % (Auto) 0.5, Absolute Neuts (auto) 4.6, Absolute Lymphs (auto) 2.56, Nucleated RBC % 0 09/15/21 06:55: Sodium 136, Potassium 4.5, Chloride 107, Carbon Dioxide 26.0, Anion Gap 3 L, BUN 18, Creatinine 0.97, Estim Creat Clear Calc 68.99, Est GFR (MDRD) Af Amer 97, Est GFR (MDRD) Non-Af 81, BUN/Creatinine Ratio 18.6, Glucose 135 H, Calcium 8.9 09/15/21 06:55: Troponin I High Sens 89 H 09/15/21 09:50: Troponin I High Sens 118 H 09/15/21 11:20: PT 13.6, INR 1.1, APTT 29.5 Rhythm Strip Rhythm Strip: Sinus Rhythm (vs atrial pacing) Rate: 70 Ectopy: None Radiology Impression Chest X-Ray 09/15/21 07:16 IMPRESSION: Bilateral increased peripheral interstitial markings, similar compared to the prior, likely representing chronic interstitial fibrotic changes are chronic inflammatory changes. Electronically Signed: Carl Coello MD at 7:47 EDT , Assessment & Plan Assessment/Plan (1) Unstable angina: PLAN: 1. Chest pain/NSTEMI-cardiology consulted. Heparin drip. Aspirin, statin, beta-queenie. Nitropaste. Plan for heart cath. 2. CAD with history of PCI/CABG-continue aspirin, statin, beta-queenie, losartan. 3. Sick sinus syndrome status post pacemaker placement 4. Hypertension-stable, on atenolol, losartan. 5. Hyperlipidemia-continue statin. 6. Depression/anxiety-continue bupropion, escitalopram. 7. BPH-continue Flomax. DVT prophylaxis-Heparin drip This patient was seen by BELIA Domínguez under the supervision of Dr. Abdul. Time spent examining patient, reviewing data and subsequent management of care: 17 Minutes. Documented by User: Dr. Alexandria Abdul MD 09/15/21 15:18 HPI - General General Date of Admission: 09/15/21 [facility] Medical History Atherosclerotic heart disease of [place] coronary artery without angina pectoris Hyperlipidemia Sick sinus syndrome Home Medications aspirin 81 mg tablet,delayed release 81 mg PO QHS 07/09/17 [History Last Taken Unknown] atenolol 50 mg tablet 50 mg PO BID tab 07/09/17 [History Last Taken 10/25/17] atorvastatin 40 mg tablet 40 mg PO QHS 07/09/17 [History Last Taken Unknown] losartan 50 mg tablet 50 mg PO QHS 07/09/17 [History Last Taken 10/25/17] omega-3 acid ethyl esters 1 gram capsule 1 g PO QHS 07/09/17 [History Last Taken Unknown] escitalopram oxalate 10 mg tablet 10 mg PO DAILY 07/12/17 [History Last Taken Unknown] ntnpecsn-aox-bdfaa acid 300 mcg-lycopene 600 mcg-lutein 300 mcg tablet 1 tab PO DAILY 07/12/17 [History Last Taken Unknown] bupropion HCl 150 mg tablet,12 hr sustained-release 150 mg PO DAILY tab 06/10/20 [History Last Taken Unknown] tamsulosin 0.4 mg capsule 0.4 mg PO QHS 06/10/20 [History Last Taken Unknown] cholecalciferol (vitamin D3) [Vitamin D3] 25 mcg PO QHS 09/15/21 [History Last Taken Unknown] fluticasone propionate 2 spray INTRANASAL DAILY 09/15/21 [History Last Taken Unknown] Allergy/AdvReac Type Severity Reaction Status Date / Time Lisiniopril AdvReac Intermediate cough Uncoded 09/15/21 06:46 Family History Father , Age 76 Myocardial infarction CAD (coronary artery disease) Mother , Age 63, breast cancer Breast cancer Sister Diabetes benign tumor in brain removed Surgical History Cardiac pacemaker in situ History of coronary artery bypass graft x 3 (~10/16/90) History of left heart catheterization Stented coronary artery (~06/29/12) Social History Smoking Status: Former smoker pack-years: 25 alcohol intake: current alcohol intake frequency: holidays/special occasions only substance use type: does not use caffeine: Yes Type: coffee Number of servings: 2 what type of physical activity do you participate in: none Results Lab / Micro Data Result Diagrams: 09/15/21 06:55 09/15/21 06:55 Charges/Coding Addendum Addendum: This patient was seen in conjunction with Margareth Blevins NP. I have independently interviewed and examined the patient and reviewed pertinent historical, laboratory, and other data. I have reviewed her note and concur with her documentation 76-year-old male with past medical history of CAD status post CABG and PCI, status post pacemaker, hyperlipidemia, who follows with cardiology in the outpatient comes in with complaints of chest discomfort that started on the morning of admission. Chest pain woke him up today, has been progressive, seems to radiate to his neck and. No associated dizziness or palpitations or nausea or vomiting. The nitroglycerin given in the ED appeared to help some. Vitals in the ED were unremarkable. Admitting blood work was unremarkable except for elevated troponin 78 and 118. Physical Exam: Gen: Comfortable, not pale, not jaundiced CVS:HS I +II, regular, no murmurs RESP: Diminished at lung bases GI: BS present and normal, soft, nontender, no palpable organs EXT:No edema ASSESSMENT: 1. Acute NSTEMI 2. CAD s/p CABG, PCI 3. Hypertension 4. Hyperlipidemia 5. Sick sinus syndrome s/p pacemaker 6. Anxiety/depression Plan: Continue with heparin drip Cardiology consult Aspirin, statin, atenolol, losartan Time spent coordinating patient's care, discussing with subspecialty and nursin minutes I discussed and explained in details the various types of CODE STATUS-full code, DNR CCA, DNR CC. Patient chose to be full code. He wants CPR and intubation in the event of a cardiopulmonary arrest. Time spent discussing CODE STATUS: 17 minutes Visit Charges Inpatient E&M: 80407 Init Hosp L3 Procedures Hospitalists Procedures: 32666 Advncd Care Plan 30 Min
--- NOTE | 2021-09-15 13:30 | EKG12_ITS ---
Test Reason : CHEST PAIN Blood Pressure : / mmHG Vent. Rate : 063 BPM Atrial Rate : 058 BPM P-R Int : 000 ms QRS Dur : 106 ms QT Int : 430 ms P-R-T Axes : 000 -09 021 degrees QTc Int : 440 ms Atrial-paced rhythm Nonspecific ST abnormality Abnormal ECG Confirmed by KEVIN LYNN, VALERIANO ([id number]), video news editor GEMA AMADOR ([id number]) on 09/17/2021 11:35:05 AM Referred By: CAROLE Confirmed By:VALERIANO BROWN MD
[2021-09-15 14:06] LABS: Troponin-I HS 515 pg/mL (3.0-78.0)
--- NOTE | 2021-09-15 14:55 | ECHOD_ITS ---
Reason For Study: Chest Pain Procedure This was a 2D Doppler, Color Flow transthoracic echocardiogram. Exam performed portable in patient room. Left Ventricle Normal LV size. Left ventricular systolic function is lower limits of normal. The estimated ejection fraction is 55 %. Stage 1 diastolic dysfunction. No regional wall motion abnormalities noted. Right Ventricle Normal RV size. ICD or pacer leads identified within the right ventricle. Normal systolic function. Atria The left atrium is mildly enlarged. Normal right atrium. Mitral Valve Normal mitral valve. Mild (1+) eccentric mitral valve insufficiency. Tricuspid Valve Normal tricuspid valve. Mild (1+) tricuspid valve insufficiency. Pulmonary artery systolic pressure is 26 mmHg. Aortic Valve Trisinus/trileaflet aortic valve. Mild (1+) aortic valve insufficiency. Pulmonic Valve Normal pulmonic valve. Great Vessels Normal aortic root. The pulmonary artery is normal size. Normal inferior vena cava. Pericardium/Pleural No pericardial effusion. MMode/2D Measurements & Calculations LVIDd: 4.8 cm IVSd: 1.4 cm Ao root diam: 3.4 cm LVIDs: 3.6 cm LVPWd: 1.1 cm RVDd: 3.6 cm FS: 24.3 % LAV(MOD-bp): 46.3 ml LVAd ap4: 29.5 cm2 SV(MOD-sp4): 47.7 ml LAV(MOD-bp) Indexed: 24.4 ml/m2 LVLd ap4: 8.2 cm LAV(MOD-sp2): 47.1 ml EDV(MOD-sp4): 87.5 ml LAV(MOD-sp4): 40.9 ml EDV(sp4-el): 90.9 ml LVAs ap4: 18.0 cm2 LVLs ap4: 7.0 cm ESV(MOD-sp4): 39.8 ml ESV(sp4-el): 39.4 ml EF(MOD-sp4): 54.5 % EF(sp4-el): 56.6 % SV(sp4-el): 51.4 ml LA A4 area: 16.1 cm2 LA dimension(2D): 4.5 cm RA A4 area: 10.6 cm2 Doppler Measurements & Calculations MV E max art: 48.3 cm/sec Lat Peak E' Art: 7.7 cm/sec Med Peak E' Art: 3.7 cm/sec MV A max art: 75.5 cm/sec E/E' lat: 6.2 E/E' med: 13.1 MV E/A: 0.64 Ao V2 max: 118.6 cm/sec LV V1 max: 100.8 cm/sec PA V2 max: 91.9 cm/sec Ao max P.6 mmHg LV V1 max P.1 mmHg Ao V2 mean: 87.0 cm/sec Ao mean P.3 mmHg Ao V2 VTI: 26.9 cm TR max art: 240.3 cm/sec TR max P.1 mmHg ECHO/Echo Complete Interpretation Summary Normal LV size. Left ventricular systolic function is lower limits of normal. The estimated ejection fraction is 55 %. Mild (1+) aortic valve insufficiency. Mild (1+) eccentric mitral valve insufficiency. Stage 1 diastolic dysfunction. Pulmonary artery systolic pressure is 26 mmHg. Ordering Physician: Neto Almeida Referring Physician: [facility] Performed By: Radha Campbell, ARTHUR, RVT
--- NOTE | 2021-09-15 15:02 | CON.PCM.CA_ITS ---
Assessment & Plan Assessment/Plan (1) Unstable angina: PLAN: He presents with chest discomfort which does not appear to be new onset though it appears to be worse in onset. He has had this for over a year but says that it is worse now. * I would recommend that we start him on intravenous heparin * Bedrest * Echocardiogram to assess his ventricular function * Continue beta-queenie and oral or topical nitrates * Would recommend cardiac catheterization in a.m. the above has been discussed with the patient and his relatives they understand and agree to proceed. (2) Stented coronary artery: PLAN: He is status post previous angioplasty and stenting as noted above. This will be reevaluated with a cardiac catheterization in a.m. (3) History of coronary artery bypass graft x 3: PLAN: He is status post coronary artery bypass surgery as noted above. At this time I would recommend that he have this evaluated with a cardiac catheterization. (4) Cardiac pacemaker in situ: PLAN: He is status post permanent pacemaker implantation with a dual- chamber pacemaker. He continues to have this interrogated through our device clinic it is noted to be functioning appropriately. (5) Hyperlipidemia: QUALIFIERS: Hyperlipidemia type: unspecified Qualified Code(s): E78.5 - Hyperlipidemia, unspecified PLAN: He will continue with aggressive risk factor modification. Thank you for allowing me to participate in the care of your patient. Please don't hesitate to call if any issues arise. HPI Consult Data Date of Consult: 09/15/21 HPI Narrative HPI Narrative: MARTIN GOFF, is a 76 M who presents to the emergency room with discomfort which she says has been ongoing for about a year. He thinks that it was worse yesterday and so he decided to present to the emergency room today. He denied any dizziness or diaphoresis near syncope or syncope. He has been followed up with us. There were no EKG changes noted at the time he arrived and his troponins were minimally elevated. He has a history of coronary artery d isease with bypass surgery with a SVG to diagonal 2, SVG to obtuse marginal, and SVG to PDA in October 1990 and stenting to RCA bifurcation and intermediate ramus in June 2012. In addition he has ventricular ectopy, Sick Sinus Syndrome status post permanent pacemaker placement in January 2001, and hyperlipidemia. He has been continue with outpatient cardiovascular follow-up. He was evaluated in the emergency room in the telemetry unit and appeared to be stable though he did have baseline minimal chest discomfort. His cardiac enzymes were abnormal. [facility] Medical History Atherosclerotic heart disease of [place] coronary artery without angina pectoris Hyperlipidemia Sick sinus syndrome Home Medications aspirin 81 mg tablet,delayed release 81 mg PO QHS 07/09/17 [History Last Taken Unknown] atenolol 50 mg tablet 50 mg PO BID tab 07/09/17 [History Last Taken 10/25/17] atorvastatin 40 mg tablet 40 mg PO QHS 07/09/17 [History Last Taken Unknown] losartan 50 mg tablet 50 mg PO QHS 07/09/17 [History Last Taken 10/25/17] omega-3 acid ethyl esters 1 gram capsule 1 g PO QHS 07/09/17 [History Last Taken Unknown] escitalopram oxalate 10 mg tablet 10 mg PO DAILY 07/12/17 [History Last Taken Unknown] dzurfssr-yfk-hmjqi acid 300 mcg-lycopene 600 mcg-lutein 300 mcg tablet 1 tab PO DAILY 07/12/17 [History Last Taken Unknown] bupropion HCl 150 mg tablet,12 hr sustained-release 150 mg PO DAILY tab 06/10/20 [History Last Taken Unknown] tamsulosin 0.4 mg capsule 0.4 mg PO QHS 06/10/20 [History Last Taken Unknown] cholecalciferol (vitamin D3) [Vitamin D3] 25 mcg PO QHS 09/15/21 [History Last Taken Unknown] fluticasone propionate 2 spray INTRANASAL DAILY 09/15/21 [History Last Taken Unknown] Allergy/AdvReac Type Severity Reaction Status Date / Time Lisiniopril AdvReac Intermediate cough Uncoded 09/15/21 06:46 Family History Father , Age 76 Myocardial infarction CAD (coronary artery disease) Mother , Age 63, breast cancer Breast cancer Sister Diabetes benign tumor in brain removed Surgical History Cardiac pacemaker in situ History of coronary artery bypass graft x 3 (~10/16/90) History of left heart catheterization Stented coronary artery (~06/29/12) Social History Smoking Status: Former smoker pack-years: 25 alcohol intake: current alcohol intake frequency: holidays/special occasions only substance use type: does not use caffeine: Yes Type: coffee Number of servings: 2 what type of physical activity do you participate in: none ROS Constitutional Constitutional: Denies fever(s) or weight loss Eyes Eyes: Reports systems reviewed and no addt'l complaints, except as documented ENT HEENT: Reports systems reviewed and no addt'l complaints, except as documented Cardiovascular Cardiovascular: Reports chest pain at rest and chest pain with activity; Denies dyspnea at rest, dyspnea on exertion, edema, palpitations or paroxysmal nocturnal dyspnea Respiratory/Chest Respiratory/Chest: Denies dyspnea on exertion, productive cough, shortness of breath at rest or shortness of breath with exertion Gastrointestinal Gastrointestinal: Denies change in bowel habits, nausea, vomiting or weight changes Genitourinary Genitourinary: Denies difficulty urinating Musculoskeletal Musculoskeletal: Denies joint stiffness or muscle weakness Integumentary Integumentary: Denies lesions Neurologic Neurologic: Denies dizziness or syncope Psychiatric Psychiatric: Denies anxiety Endocrine Endocrinology: Denies excessive sweating or fatigue Hematologic/Lymphatic Hematologic/Lymphatic: Denies anemia Allergic/Immunologic Allergic/Immunologic: Denies seasonal rhinorrhea Physical Exam Const alert, oriented x3 and no apparent distress General Appearance: cooperative HEENT hearing grossly normal bilaterally Head and Scalp: atraumatic Eyes EOMs intact bilaterally Neck General: normal visual inspection Chest inspection of chest normal and palpation of chest normal Resp normal respiratory effort Auscultation: clear to auscultation bilaterally Cardio regular rate, regular rhythm, S1 normal heart sound and S2 normal heart sound Jugular Venous Distention: JVD GI normal to inspection, nondistended, normoactive bowel sounds Extremity normal capillary refill and no pedal edema Peripheral Pulses: Yes pulses 2+ throughout and femoral pulses present Skin no rashes or lesions noted Neuro oriented x3 and CN's II-XII intact bilaterally Psych Appearance: grossly normal and appropriate Risk Stratification Risk Stratification Applicable: Yes Age >/= 65: Yes >/= 3 CAD Risk Factors (HTN, HLD, DM, family hx of CAD, or current smoker): Yes Aspirin Use in the Past 7 Days: Yes Severe Angina (>/= episodes in 24 hours): Yes EKG ST Changes >/= 0.5mm: No Positive Cardiac Marker: Yes REX Risk Stratification Score: 5 REX % Risk: 25% Risk Objective Data Vital Signs: Vital Signs Temp Pulse Resp BP Pulse Ox 98.4 F 71 16 116/77 96 09/15/21 11:47 09/15/21 11:54 09/15/21 13:41 09/15/21 11:54 09/15/21 13:41 Oxygen Flow Rate (L/min) 2 Oxygen Delivery Method Room Air Weight: 164 lb 3.91 oz Body Mass Index (BMI) 23.6 Lab / Micro Data Result Diagrams: 09/15/21 06:55 09/15/21 06:55 Labs: Laboratory Results - last 24 hr 09/15/21 06:55: WBC 8.4, RBC 4.85, Hgb 15.0, Hct 43.6, MCV 89.9, MCH 30.9, MCHC 34.4, RDW Std Deviation 39.9, RDW Coeff of Hannah 12.2, Plt Count 161, MPV 11.3, Immature Gran % (Auto) 0.200, Neut % (Auto) 54.7, Lymph % (Auto) 30.7, Blaine % (Auto) 11.6 H, Eos % (Auto) 2.3, Baso % (Auto) 0.5, Absolute Neuts (auto) 4.6, Absolute Lymphs (auto) 2.56, Nucleated RBC % 0 09/15/21 06:55: Sodium 136, Potassium 4.5, Chloride 107, Carbon Dioxide 26.0, Anion Gap 3 L, BUN 18, Creatinine 0.97, Estim Creat Clear Calc 68.99, Est GFR (MDRD) Af Amer 97, Est GFR (MDRD) Non-Af 81, BUN/Creatinine Ratio 18.6, Glucose 135 H, Calcium 8.9 09/15/21 06:55: Troponin I High Sens 89 H 09/15/21 09:50: Troponin I High Sens 118 H 09/15/21 11:20: PT 13.6, INR 1.1, APTT 29.5 09/15/21 13:21: Troponin I High Sens 515 H* Rhythm Strip Rhythm Strip: Sinus Rhythm (vs atrial pacing) Rate: 70 Ectopy: None Cardiology Labs/Tests 09/15/21 06:55: WBC 8.4, RBC 4.85, Hgb 15.0, Hct 43.6, MCV 89.9, MCH 30.9, MCHC 34.4, Plt Count 161, MPV 11.3, Immature Gran % (Auto) 0.200, Neut % (Auto) 54.7, Lymph % (Auto) 30.7, Blaine % (Auto) 11.6 H, Eos % (Auto) 2.3, Baso % (Auto) 0.5, Absolute Neuts (auto) 4.6, Nucleated RBC % 0 09/15/21 06:55: Sodium 136, Potassium 4.5, Chloride 107, Carbon Dioxide 26.0, Anion Gap 3 L, BUN 18, Creatinine 0.97, Est GFR (MDRD) Af Amer 97, Est GFR (MDRD) Non-Af 81, BUN/Creatinine Ratio 18.6, Glucose 135 H, Calcium 8.9 09/15/21 11:20: PT 13.6, INR 1.1, APTT 29.5 Rhythm: EKG: ECHO: Stress Test: Cardiac Cath: PCI: CT Surgery: Holter monitor: EPS: PPM: CXR: Chest CT Scan: Radiography Diagnostic Testing: Radiology Impression Chest X-Ray 09/15/21 07:16 IMPRESSION: Bilateral increased peripheral interstitial markings, similar compared to the prior, likely representing chronic interstitial fibrotic changes are chronic inflammatory changes. Electronically Signed: Carl Coello MD at 7:47 EDT ,
[2021-09-15] MEDS: Acetaminophen 325 MG Tablet 650 MG PO (20:18)
[2021-09-15] MEDS: Tamsulosin HCl 0.4 MG Capsule PO (21:22)
[2021-09-15] MEDS: Atorvastatin Calcium 40 MG Tablet PO (21:22)
[2021-09-15] MEDS: Losartan Potassium 50 MG Tablet PO (21:22)
[2021-09-15] MEDS: Omega-3 Acid Ethyl Esters 1 GM Capsule PO (21:22)
[2021-09-15] MEDS: Aspirin E.C. 81 MG Tablet PO (21:23)
[2021-09-15] MEDS: Cholecalciferol (VIT D3) 25 MCG TABLET (1,000 UNITS) PO (21:23)
[2021-09-15] MEDS: Atenolol 50 MG Tablet PO (21:23)
[2021-09-15 21:33] LABS: Partial Thromboplast Time 85.1 Seconds (24.1-36.2)
[2021-09-16] VITALS (15 sets, daily range): BP systolic 75–131; BP diastolic 48–98; PULSE 63–95; RESP 14–18; TEMP 36.6–36.8; O2SAT 94–99
[2021-09-16] MEDS: 0.9% Normal Saline 1,000 ML 999 ML IV (02:31)
[2021-09-16 03:08] LABS: Absolute Lymphocyte Count 1.82 X10^3/uL (0.83-4.51); Absolute Neutrophil Count 4.4 X10^3/uL (2.0-7.7); Basophil# 0.04 X10^3/uL; Basophil% 0.5 % (0-1); Eosinophil# 0.12 X10^3/uL; Eosinophils% 1.6 % (0-5); Hematocrit 37.4 % (40-54); Hemoglobin 13.1 g/dL (13.0-16.5); Lymphocyte # 1.82 X10^3/ul (0.83-4.51); Lymphocyte % 24.8 % (19-41); Mean Corpuscular Hgb 31.2 pg (27.0-32.0); Mean Platelet Vol. 10.6 fl (6.2-12.0); Monocyte# 0.89 X10^3/uL; Monocyte% 12.1 % (0-10); NRBC Flagged by Analyzer 0 % (0-5); Neutrophil # 4.44 X10^3/uL (2.7-7.7); Neutrophil % 60.7 % (47-70); Platelet Count 135 K/mm3 (150-450); RBC Distribution Width CV 12.3 % (11.6-14.6); RBC Distribution Width SD 39.6 fl (35.1-43.9); White Blood Count 7.3 K/mm3 (4.4-11.0)
[2021-09-16 03:16] LABS: Partial Thromboplast Time 77.3 Seconds (24.1-36.2)
[2021-09-16 04:08] LABS: ALB/GLOB Ratio 1.4 RATIO (0.9-2.4); AST(SGOT) 51 U/L (15-37); Alanine Aminotransfer ALT/SGPT 45 U/L (16-61); Albumin, Serum 3.3 g/dL (3.2-5.0); Alkaline Phosphatase 81 U/L (45-117); Anion Gap 6 (5-15); BUN 19 mg/dL (7-18); BUN/Creat Ratio 22.3 RATIO (10-20); Calcium,Total 8.1 mg/dL (8.5-10.1); Chloride 107 mmol/L (98-107); Creatinine, Serum 0.85 mg/dL (0.70-1.30); EST Glomerular Filtration Rate 93 mL/min (>60); Est Glom Filt Rate - Afr Amer 113 mL/min (>60); Estimated Creatinine Clearance 78.73 ml/min; Globulin 2.3 g/dL (2.2-4.2); Glucose 104 mg/dL (74-106); Protein, Total 5.6 g/dL (6.4-8.2); Sodium Level 139 mmol/L (136-145)
--- NOTE | 2021-09-16 04:47 | EKG12_ITS ---
Test Reason : AM EKG Blood Pressure : / mmHG Vent. Rate : 067 BPM Atrial Rate : 066 BPM P-R Int : 000 ms QRS Dur : 108 ms QT Int : 432 ms P-R-T Axes : 000 065 108 degrees QTc Int : 456 ms Electronic atrial pacemaker ST & T wave abnormality, consider anterior ischemia Abnormal ECG When compared with ECG of 15-SEP-2021 13:33, MANUAL COMPARISON REQUIRED, DATA IS UNCONFIRMED Confirmed by KENJI LYNN, TAN ([id number]), art editor RIKI CRAFT ([id number]) on 09/19/2021 1:27:37 PM Referred By: Confirmed By:EMMETT PHILLIP MD
[2021-09-16] MEDS: 0.9% Saline Lock 10 ML Syringe IV (05:01)
--- NOTE | 2021-09-16 05:55 | EKG12_ITS ---
Test Reason : CP ADMISSION Blood Pressure : / mmHG Vent. Rate : 063 BPM Atrial Rate : 062 BPM P-R Int : 000 ms QRS Dur : 104 ms QT Int : 430 ms P-R-T Axes : 000 -02 073 degrees QTc Int : 440 ms Electronic atrial pacemaker Nonspecific ST and T wave abnormality Abnormal ECG When compared with ECG of 15-SEP-2021 09:59, MANUAL COMPARISON REQUIRED, DATA IS UNCONFIRMED Confirmed by KENJI LYNN, TAN ([id number]), material expeditor RIKI CRAFT ([id number]) on 09/19/2021 1:10:41 PM Referred By: ETELVINA Confirmed By:EMMETT PHILLIP MD
--- NOTE | 2021-09-16 06:17 | NURSING ---
Per Juan Pablo, hold atenolol prior to heart cath due to pt bp 103/77.
--- NOTE | 2021-09-16 07:56 | PN.CARD_ITS ---
Subjective Subjective The patient is awake and alert. He denies ongoing discomfort at this time. He denies any acute respiratory related events. Objective Data Vital Signs: Vital Signs Temp Pulse Resp BP Pulse Ox 97.9 F 78 16 103/77 97 09/16/21 05:59 09/16/21 05:59 09/16/21 05:59 09/16/21 05:59 09/16/21 05:59 Oxygen Flow Rate (L/min) 2 Oxygen Delivery Method Room Air Weight: 164 lb 3.91 oz Body Mass Index (BMI) 23.6 Intake & Output: Intake and Output for Last 24 Hours 09/14/21 09/15/21 09/16/21 23:59 23:59 23:59 Intake Total 211.28 / 211.28 1073.67 / 1073.67 Balance 211. / . 1073.67 / 1073.67 Lab / Micro Data Result Diagrams: 09/16/21 02:58 09/16/21 02:58 Labs: Laboratory Results - last 24 hr 09/15/21 06:55: Troponin I High Sens 89 H 09/15/21 09:50: Troponin I High Sens 118 H 09/15/21 11:20: PT 13.6, INR 1.1, APTT 29.5 09/15/21 13:21: Troponin I High Sens 515 H* 09/15/21 20:58: APTT 85.1 H 09/16/21 02:58: WBC 7.3, RBC 4.20 L, Hgb 13.1, Hct 37.4 L, MCV 89.0, MCH 31.2, MCHC 35.0, RDW Std Deviation 39.6, RDW Coeff of Hannah 12.3, Plt Count 135 L, MPV 10.6, Immature Gran % (Auto) 0.300, Neut % (Auto) 60.7, Lymph % (Auto) 24.8, Cecil % (Auto) 12.1 H, Eos % (Auto) 1.6, Baso % (Auto) 0.5, Absolute Neuts (auto) 4.4, Absolute Lymphs (auto) 1.82, Nucleated RBC % 0 09/16/21 02:58: Sodium 139, Potassium 4.0, Chloride 107, Carbon Dioxide 26.0, Anion Gap 6, BUN 19 H, Creatinine 0.85, Estim Creat Clear Calc 78.73, Est GFR (MDRD) Af Amer 113, Est GFR (MDRD) Non-Af 93, BUN/Creatinine Ratio 22.3 H, Glucose 104, Calcium 8.1 L, Total Bilirubin 0.60, AST 51 H, ALT 45, Alkaline Phosphatase 81, Total Protein 5.6 L, Albumin 3.3, Globulin 2.3, Albumin/Globulin Ratio 1.4 09/16/21 02:58: APTT 77.3 H Rhythm Strip Rhythm Strip: Sinus Rhythm (vs atrial pacing) Rate: 70 Ectopy: None Cardiology Labs/Tests 09/15/21 11:20: PT 13.6, INR 1.1, APTT 29.5 09/15/21 20:58: APTT 85.1 H 09/16/21 02:58: WBC 7.3, RBC 4.20 L, Hgb 13.1, Hct 37.4 L, MCV 89.0, MCH 31.2, MCHC 35.0, Plt Count 135 L, MPV 10.6, Immature Gran % (Auto) 0.300, Neut % (Auto) 60.7, Lymph % (Auto) 24.8, Cecil % (Auto) 12.1 H, Eos % (Auto) 1.6, Baso % (Auto) 0.5, Absolute Neuts (auto) 4.4, Nucleated RBC % 0 09/16/21 02:58: Sodium 139, Potassium 4.0, Chloride 107, Carbon Dioxide 26.0, Anion Gap 6, BUN 19 H, Creatinine 0.85, Est GFR (MDRD) Af Amer 113, Est GFR (MDRD) Non-Af 93, BUN/Creatinine Ratio 22.3 H, Glucose 104, Calcium 8.1 L, Total Bilirubin 0.60 09/16/21 02:58: APTT 77.3 H Rhythm: Electronic atrial paced rhythm EKG: Electronic atrial paced rhythm; nonspecific ST/T wave abnormality ECHO: As noted below Cardiac Cath: 06-29-2012: [facility] Summary: LAD: Occluded LCx: Occluded RCA: Occluded Intermediate ramus: 90% stenosis SVG to the diagonal branch: 60% stenosis SVG to the PDA: 10% stenosis PCI: 06-29-2012: [facility] Intermediate ramus: Proximal BMS 2.75x16 PDA: Promus RANDY 3.0x28 CT Surgery: 10-16-1990: [place], [place] SVG to the diagonal branch SVG to the OM SVG to the PDA Radiography Diagnostic Testing: Radiology Impression Echocardiogram 09/15/21 14:55 Interpretation Summary Normal LV size. Left ventricular systolic function is lower limits of normal. The estimated ejection fraction is 55 %. Mild (1+) aortic valve insufficiency. Mild (1+) eccentric mitral valve insufficiency. Stage 1 diastolic dysfunction. Pulmonary artery systolic pressure is 26 mmHg. Ordering Physician: Neto Almeida Referring Physician: [facility] Performed By: Radha Campbell, ARTHUR, RVT Physical Exam Const alert, oriented x3 and no apparent distress Orientation / Consciousness: awake HEENT normocephalic, head/scalp atraumatic and hearing grossly normal bilaterally Eyes PERRL, EOMs intact bilaterally and conjunctivae normal Neck full ROM, supple and no JVD Chest Chest: midline sternotomy incision and left pectoral incision Resp clear to auscultation bilaterally Cardio regular rate, regular rhythm, S1 normal heart sound and S2 normal heart sound GI normal to inspection, nondistended, normoactive bowel sounds Extremity no pedal edema Skin no rashes or lesions noted Psych mental status grossly normal Assessment & Plan Assessment/Plan (1) Unstable angina: PLAN: The patient presents with symptoms concerning for unstable angina pectoris. He has been evaluated with cardiac enzymes which have turned positive. His ECG is as noted. He has undergone evaluation with a transthoracic echocardiogram with the results as noted. He has continued medical therapy. He has been recommended for further evaluation with diagnostic cardiac catheterization. The procedure and risk were discussed with him. He was agreeable to this approach. (2) Non-ST elevation (NSTEMI) myocardial infarction: PLAN: The patient has a finding compatible with an acute non-ST segment elevation UT. He will continue to be followed. He will continue medical management. He is already undergone noninvasive valuation with a transthoracic echocardiogram. He has been recommended for further invasive evaluation with diagnostic cardiac catheterization. The procedure and risk were discussed with him. He was agreeable to this approach. (3) Atherosclerotic heart disease of [place] coronary artery without angina pectoris: QUALIFIERS: [place] vs. transplanted heart: [place] heart Qualified Code(s): I25.10 - Atherosclerotic heart disease of [place] coronary artery wit hout angina pectoris PLAN: The patient has a history of CAD. His last diagnostic cardiac catheterization was on 06-29-2012 and [facility]. The summary results a re as noted. Based upon his symptoms and objective findings there is concern about progression of his [place] vessel disease and/or possible graft vessel disease. Thus he is going to proceed with further evaluation care as noted above. (4) Stented coronary artery: PLAN: The patient has undergone previous PCI on 06-29-2012 at [facility] as noted. Again there may be concern of in-stent restenosis. Thus he will undergo further evaluation with diagnostic cardiac catheterization. (5) History of coronary artery bypass graft x 3: PLAN: The patient has history of CABG being performed on 10-16-1990 at [facility] in [place], [place]. At the time he received an SVG to the diagonal branch, and SVG to the OM, and an SVG to the PDA. Based upon his diagnostic cardiac catheterization on 06-29-2012 at [facility] the SVG to the diagonal was reported as patent with 60% stenosis in the SVG to the PDA was reported as patent with 10% stenosis. There was no comment on an SVG to the OM system. (6) Sick sinus syndrome: PLAN: The patient has a history of sick sinus syndrome. He will continue medical management and pacemaker support. (7) Cardiac pacemaker in situ: PLAN: The patient has a permanent pacemaker. It has been followed in the past and has been reported is functioning appropriately. (8) Hyperlipidemia: QUALIFIERS: Hyperlipidemia type: unspecified Qualified Code(s): E78.5 - Hyperlipidemia, unspecified PLAN: The patient should continue risk factor evaluation and care/medical therapy as deemed appropriate. Addt'l Comments The patient's case was discussed and reviewed with the patient and Dr. Almeida performed his [facility] cardiovascular consultation. This note was generated using a voice recognition system and there may be incorrect words, spelling or punctuation that were not noted when reviewing the office note prior to saving. Procedure Criteria Type of Procedure Procedure Type: Elective Elective Risks - COVID COVID Risk Discussion: The surgeon/proceduralist and patient have discussed in detail the risk of exposure to and/or potential harm posed by the COVID-19 virus with having a surgery/procedure at this time versus the risk of delaying the aragon rgery/procedure. It is not possible to know either the risk of delaying the surgery or procedure or chance of getting an infection with perfect accuracy, but a joint decision was made between the patient and the surgeon/proceduralist to proceed at this time with the scheduled surgery/procedure as indicated on the consent form.
--- NOTE | 2021-09-16 10:22 | CL.D_ITS ---
Patient Name: MARTIN GOFF Study Date: 09/16/2021 Performing: Jase Salinas MD Ht: 70.07 inches 178 cm : 1945 Wt: 165.35 lbs 75 kg Age: 76 Gender: male BSA: 1.93 PROCEDURE(S) PERFORMED [id number])LHC/COR/CABG CLINICAL PROFILE AND INDICATIONS Indications: ACS <= 24 hrs, Worsening Angina, Suspected CAD Heart Failure: None Stress/Imaging Stress/Image Study Performed: No Angina Classification Anginal Classification w/in 2 Weeks: CCS IV CAD Presentations: Non-STEMI. CONCLUSIONS [facility] Multivessel CAD IR: stent: patent RAVS stent: occluded SVG to DX: subtotally occluded and subsequently occluded (chronic appearing) SVG to OM: previously reported as occluded and not reevaluated during this procedure SVG to RPDA: patent RECOMMENDATIONS Risk factor modification Medical therapy Case discussed / reviewed with Dr. Roque of interventional cardiology DESCRIPTION OF PROCEDURE The patient arrived to the procedure lab. The risks and benefits of the procedure as well as a full d escription of our services here and current unavailability of surgical backup were fully explained to the patient and/or their significant other prior to the catheterization. The Timeout was completed, verifying the correct patient and procedure. The patient's procedural site was prepped and draped in the usual fashion. Local anesthetic was given subcutaneously to right radial region with Lidocaine 2% . Using a modified Seldinger technique, arterial access was obtained via the right radial artery, a 6 Fr sheath was inserted. Left Coronary Artery selective angiography was performed in multiple views u sing a 5 Fr. 4.0 [place] catheter. Right Coronary Artery selective angiography was then performed in mu ltiple views using a 5 Fr. 4.0 [place] catheter. Saphenous Vein graft to the DIAG 2 selective angiograp hy was performed in multiple views using a 5 Fr. 4.0 [place] catheter. Saphenous Vein graft to the RPDA selective angiography was performed in multiple views using a 5 Fr. JR 4 catheter.The art erial sheath was pulled and a TR Band was applied for hemostasis CORONARY ANGIOGRAPHY DOMINANCE: Right Dominant LEFT HEART ASSESSMENT Left Ventricular Ejection Fraction: Not assessed LEFT MAIN: Mild luminal irregularities LEFT ANTERIOR DESCENDING ARTERY: PROX LAD: is occluded DIAGONAL 1: Proximal - small caliber vessel: diffuse: eccentric: 25 % Stenosis SEPTAL: Mild luminal irregularities CIRCUMFLEX ARTERY: PROX CIRC: is occluded RAMUS: Previously placed stent is patent, Mild luminal irregularities RIGHT CORONARY ARTERY: PROX RCA: is occluded RT PDA: Proximal - Mild luminal irregularities RIGHT AV SEGMENT: Previously placed stent is occluded GRAFTS: Saphenous Vein graft to the 1st Diagonal is patent and subsequently subtotally occluded and subseque ntly occluded (chronic appearing) Saphenous Vein graft to the 1st OM is totally occluded (previously reported as occluded and not reeva luated during this procedure) Saphenous Vein graft to the RPDA is patent COMPLICATIONS No Complications PROCEDURE MEDICATIONS Versed 1 mg IV Fentanyl 50 mcg IV Versed 1 mg IV Fentanyl 50 mcg IV Oxygen: 2 L/min via nasal cannula Heparin given IA 09/16/2021 09:02:16 Nitro 50 mcg IC 09/16/2021 09:35:45 Verapamil 2.5mg, Ntg 100mcgs, 2000 units of Heparin given IA 09/16/2021 09:02:16 SUMMARY OF HEMODYNAMIC DATA Time AIR REST ECG 08:42:39 AO 91/67 (79) SA 09:04:15 AO 106/71 (87) 09:13:51 Signed By Jase Salinas MD On 09/16/2021 10:21:11 Jase Salinas MD
[2021-09-16] MEDS: 0.9% Normal Saline 1,000 ML 75 ML IV (10:30)
--- NOTE | 2021-09-16 11:42 | DCINST_ITS ---
Discharge Instructions Diet Discharge Diet: Low fat / Low cholesterol Activity Discharge Activity: Return to Normal Activity Additional Activity Instructions:: Follow-up post cath instructions Dressing / Incision Call your doctor if your incision/area has: Continuous Slow Oozing, Sudden Increased Bleeding, Increased Pain/ Swelling, Increased Redness, Foul Smelling Discharge and Swelling at the incision site Call your doctor if you observe: Shortness of breath, Dizziness and Chest pain Follow Up Care Test Results: Test results from this visit will be discussed in further detail at your follow-up appointment, if applicable. Discharge Plan Admission Admit Date/Time: 09/15/21 13:27 Primary Reason for Your Visit: chest pain Attending Provider: Alexandria Abdul Primary Care Provider: [facility],[place] Consulting Providers: Darion Camarena ; Alexa Kelly ; Neto Almeida ; Devendra Child ; Miguel Angel Rico ; Thom Lopez ; Marni Alcantara ; Ovi Lozano ; Xochilt Chambers ; Sebastian Roque ; Jase Salinas ; Angelo Sebastian ; Emmanuel Campbell AUTOMOTIVE SERVICE MANAGER ; Ct Montes De Oca NP ; Ilda Hanson PA Instructions Additional Instructions / Restrictions: Begin isosorbide 09/17/21. Discharge Orders/Prescriptions Prescriptions: New isosorbide mononitrate 30 mg Tablet Extended Release 24 Hr 30 mg PO DAILY 30 Days Qty: 30 RF: 0 clopidogrel 75 mg Tablet 75 mg PO DAILY 30 Days Qty: 30 RF: 0 Continued atenolol 50 mg tablet 50 mg PO BID RF: 0 aspirin [Adult Aspirin Regimen] 81 mg tablet,delayed release (DR/EC) 81 mg PO QHS RF: 0 losartan 50 mg tablet 50 mg PO QHS RF: 0 omega-3 acid ethyl esters 1 gram capsule 1 g PO QHS RF: 0 atorvastatin 40 mg tablet 40 mg PO QHS RF: 0 bupropion HCl 150 mg tablet sustained-release 12 hr 150 mg PO DAILY RF: 0 jlivyojz-fic-WK-lycopen-lutein [Centrum Silver Men] 300-600-300 mcg tablet 1 tab PO DAILY RF: 0 escitalopram oxalate 10 mg tablet 10 mg PO DAILY RF: 0 tamsulosin 0.4 mg capsule 0.4 mg PO QHS RF: 0 fluticasone propionate 50 mcg/actuation [place],Suspension 2 spray INTRANASAL DAILY RF: 0 cholecalciferol (vitamin D3) [Vitamin D3] 25 mcg (1,000 unit) Tablet 25 mcg PO QHS RF: 0 Referrals / Follow Up: Jase Salinas MD [STAFF PHYSICIAN] - [facility]eks [facility] [Primary Care Provider] - In 1 Week Disposition Disposition (needs filled in before D/C Order can be placed): Home, Self Care
[2021-09-16] MEDS: Fluticasone 0.05% 1 SPRAY NASAL.SRY 2 SPRAY NASAL (11:45)
[2021-09-16] MEDS: Escitalopram Oxalate 10 MG Tablet PO (11:46)
[2021-09-16] MEDS: Atenolol 50 MG Tablet PO (11:46)
[2021-09-16] MEDS: buPROPion (SR) 150 MG Tablet.SA PO (11:46)
[2021-09-16] MEDS: Multivitamins,Ther W-Minerals Tablet 1 TABLET PO (11:46)
--- NOTE | 2021-09-16 11:50 | DS.PCM_ITS ---
Documented by User: Margareth Blevins NP, ORGANIZATIONAL DEVELOPMENT DIRECTOR-C 09/16/21 11:56 Providers Date of Admission: 09/15/21 Date of Discharge: 09/16/21 Primary Care Physician: Consultations 09/15/21 12:56 Consult: Cardiology Routine Consulting Provider: Linda Riley Reason for Consult: Chest pain EMERGENT Consult: No MD Notified: Yes Date Notified: 09/15/21 Time Notified: 13:00 Method of Notification: Text Reason For Visit: CHEST PAINV Diagnosis Discharge Diagnosis (1) Unstable angina: Status: Acute Code(s): I20.0 - Unstable angina (2) Non-ST elevation (NSTEMI) myocardial infarction: Status: Acute Code(s): I21.4 - Non-ST elevation (NSTEMI) myocardial infarction (3) Atherosclerotic heart disease of [place] coronary artery without angina pectoris: Status: Chronic Code(s): I25.10 - Atherosclerotic heart disease of [place] coronary artery without angina pectoris Qualifiers: [place] vs. transplanted heart: [place] heart Qualified Code(s): I25.10 - Atherosclerotic heart disease of [place] coronary artery without angina pectoris (4) Stented coronary artery: Status: Chronic Code(s): Z95.5 - Presence of coronary angioplasty implant and graft (5) History of coronary artery bypass graft x 3: Status: Chronic Code(s): Z95.1 - Presence of aortocoronary bypass graft (6) Sick sinus syndrome: Status: Chronic Code(s): I49.5 - Sick sinus syndrome (7) Cardiac pacemaker in situ: Status: Chronic Code(s): Z95.0 - Presence of cardiac pacemaker (8) Hyperlipidemia: Status: Chronic Code(s): E78.5 - Hyperlipidemia, unspecified Qualifiers: Hyperlipidemia type: unspecified Qualified Code(s): E78.5 - Hyperlipidemia, unspecified Medications at Discharge Home Medications aspirin 81 mg tablet,delayed release 81 mg PO QHS 07/09/17 atenolol 50 mg tablet 50 mg PO BID tab 07/09/17 atorvastatin 40 mg tablet 40 mg PO QHS 07/09/17 losartan 50 mg tablet 50 mg PO QHS 07/09/17 omega-3 acid ethyl esters 1 gram capsule 1 g PO QHS 07/09/17 escitalopram oxalate 10 mg tablet 10 mg PO DAILY 07/12/17 binadomp-vkv-yucqz acid 300 mcg-lycopene 600 mcg-lutein 300 mcg tablet 1 tab PO DAILY 07/12/17 bupropion HCl 150 mg tablet,12 hr sustained-release 150 mg PO DAILY tab 06/10/20 tamsulosin 0.4 mg capsule 0.4 mg PO QHS 06/10/20 cholecalciferol (vitamin D3) [Vitamin D3] 25 mcg PO QHS 09/15/21 fluticasone propionate 2 spray INTRANASAL DAILY 09/15/21 clopidogrel 75 mg PO DAILY 30 Days #30 tab 09/16/21 isosorbide mononitrate 30 mg PO DAILY 30 Days #30 tab 09/16/21 Hospital Course Operations None Procedures 2-D Echocardiogram and Cardiac catheterization Summary of Care Provided Hospital Course: Patient is a 76-year-old male admitted 09/15/2021 due to chest pain. 1. Unstable angina/NSTEMI-cardiology consulted during admission.echocardiogram demonstrates an EF of 55%, mild aortic valve insufficiency, mild mitral valve insufficiency, stage I diastolic dysfunction. Patient underwent heart cath which demonstrated [place] multivessel CAD. Plan for continued medical management. Continue home aspirin, statin, beta-queenie. Initiated on Plavix and isosorbide. Begin isosorbide 09/17/21. Follow-up with PCP in 1 week and cardiology in 2 weeks. 2. CAD with history of PCI/CABG-continue aspirin, statin, beta-queenie, losartan. Plavix and isosorbide added as noted above. 3. Sick sinus syndrome status post pacemaker placement 4. Hypertension-stable, on atenolol, losartan. 5. Hyperlipidemia-continue statin. 6. Depression/anxiety-continue bupropion, escitalopram. 7. BPH-continue Flomax. Physical Exam Const alert, oriented x3 and no apparent distress Orientation / Consciousness: awake, oriented to person, oriented to place and oriented to time HEENT normocephalic and moist oral mucous membranes Eyes PERRL, EOMs intact bilaterally and conjunctivae normal Neck no lymphadenopathy Resp normal respiratory effort and clear to auscultation bilaterally Cardio regular rate, regular rhythm and no murmurs Peripheral Pulses: pulses 2+ throughout GI normal to inspection, nondistended, normoactive bowel sounds, non-tender and non-distended Extremity normal to inspection Skin no rashes or lesions noted Lesions: no lesions Rashes: no rashes Trauma: no lacerations or abrasions Neuro CN's II-XII intact bilaterally, no focal motor deficits, no sensory deficits noted and deep tendon reflexes 2+ bilaterally Psych mental status grossly normal and affect normal Patient seen and examined prior to discharge. Physical assessment as noted above. Patient is stable for discharge with follow up recommendations as noted above. This patient was seen by BELIA Domínguez under the supervision of Dr. Abdul. Time spent examining patient, reviewing data and subsequent management of care: 18 Minutes. Weight / BMI Weight Weight: 164 lb 3.91 oz Body Mass Index (BMI) 23.6 ABG / Lab / Microbiology Data Result Diagrams: 09/16/21 02:58 09/16/21 02:58 Laboratory: Laboratory Results - last 24 hr 09/15/21 11:20: PT 13.6, INR 1.1, APTT 29.5 09/15/21 13:21: Troponin I High Sens 515 H* 09/15/21 20:58: APTT 85.1 H 09/16/21 02:58: WBC 7.3, RBC 4.20 L, Hgb 13.1, Hct 37.4 L, MCV 89.0, MCH 31.2, MCHC 35.0, RDW Std Deviation 39.6, RDW Coeff of Hannah 12.3, Plt Count 135 L, MPV 10.6, Immature Gran % (Auto) 0.300, Neut % (Auto) 60.7, Lymph % (Auto) 24.8, [place] % (Auto) 12.1 H, Eos % (Auto) 1.6, Baso % (Auto) 0.5, Absolute Neuts (auto) 4.4, Absolute Lymphs (auto) 1.82, Nucleated RBC % 0 09/16/21 02:58: Sodium 139, Potassium 4.0, Chloride 107, Carbon Dioxide 26.0, Anion Gap 6, BUN 19 H, Creatinine 0.85, Estim Creat Clear Calc 78.73, Est GFR (MDRD) Af Amer 113, Est GFR (MDRD) Non-Af 93, BUN/Creatinine Ratio 22.3 H, Glucose 104, Calcium 8.1 L, Total Bilirubin 0.60, AST 51 H, ALT 45, Alkaline Phosphatase 81, Total Protein 5.6 L, Albumin 3.3, Globulin 2.3, Albumin/Globulin Ratio 1.4 09/16/21 02:58: APTT 77.3 H Radiography Diagnostic Testing: Radiology Impression Echocardiogram 09/15/21 14:55 Interpretation Summary Normal LV size. Left ventricular systolic function is lower limits of normal. The estimated ejection fraction is 55 %. Mild (1+) aortic valve insufficiency. Mild (1+) eccentric mitral valve insufficiency. Stage 1 diastolic dysfunction. Pulmonary artery systolic pressure is 26 mmHg. Ordering Physician: Neto Almeida Referring Physician: Performed By: Radha Campbell RDCS, RVT D/C Instructions Discharge Diet: Low fat / Low cholesterol Additional Activity Instructions: Follow-up post cath instructions Call your doctor if your incision/area has: Continuous Slow Oozing, Sudden Increased Bleeding, Increased Pain/ Swelling, Increased Redness, Foul Smelling Discharge and Swelling at the incision site Call your doctor if you observe: Shortness of breath, Dizziness and Chest pain Meaningful Use Info Meaningful Use Diagnoses (Choose all that apply): None applicable Discharge Plan Admission Admit Date/Time: 09/15/21 13:27 Primary Reason for Your Visit: chest pain Attending Provider: Alexandria Abdul Primary Care Provider: [place], [place] Consulting Providers: Darion Camarena ; Alexa Kelly ; Neto Almeida ; Devendra Child ; Miguel Angel Rico ; Thom Lopez ; Marni Alcantara ; Ovi Lozano ; Xochilt Chambers ; Sebastian Roque ; Jase Salinas ; Angelo Sebastian ; Emmanuel Campbell NP ; Ct Vega NP ; Ilda Hanson Instructions Additional Instructions / Restrictions: Begin isosorbide 09/17/21. Discharge Orders/Prescriptions Prescriptions: New isosorbide mononitrate 30 mg Tablet Extended Release 24 Hr 30 mg PO DAILY 30 Days Qty: 30 RF: 0 clopidogrel 75 mg Tablet 75 mg PO DAILY 30 Days Qty: 30 RF: 0 Continued atenolol 50 mg tablet 50 mg PO BID RF: 0 aspirin [Adult Aspirin Regimen] 81 mg tablet,delayed release (DR/EC) 81 mg PO QHS RF: 0 losartan 50 mg tablet 50 mg PO QHS RF: 0 omega-3 acid ethyl esters 1 gram capsule 1 g PO QHS RF: 0 atorvastatin 40 mg tablet 40 mg PO QHS RF: 0 bupropion HCl 150 mg tablet sustained-release 12 hr 150 mg PO DAILY RF: 0 tpmeanmt-urd-PR-lycopen-lutein [Centrum Silver Men] 300-600-300 mcg tablet 1 tab PO DAILY RF: 0 escitalopram oxalate 10 mg tablet 10 mg PO DAILY RF: 0 tamsulosin 0.4 mg capsule 0.4 mg PO QHS RF: 0 fluticasone propionate 50 mcg/actuation [place],Suspension 2 spray INTRANASAL DAILY RF: 0 cholecalciferol (vitamin D3) [Vitamin D3] 25 mcg (1,000 unit) Tablet 25 mcg PO QHS RF: 0 Referrals / Follow Up: Jase Salinas MD [STAFF PHYSICIAN] - [facility] Weeks [facility] [Primary Care Provider] - In 1 Week Disposition Disposition (needs filled in before D/C Order can be placed): Home, Self Care Documented by User: Dr. Alexandria Abdul MD 09/16/21 15:38 Providers Date of Admission: 09/15/21 Reason For Visit: CHEST PAINV Medications at Discharge Home Medications aspirin 81 mg tablet,delayed release 81 mg PO QHS 07/09/17 atenolol 50 mg tablet 50 mg PO BID tab 07/09/17 atorvastatin 40 mg tablet 40 mg PO QHS 07/09/17 losartan 50 mg tablet 50 mg PO QHS 07/09/17 omega-3 acid ethyl esters 1 gram capsule 1 g PO QHS 07/09/17 escitalopram oxalate 10 mg tablet 10 mg PO DAILY 07/12/17 hcmxfati-bje-lgqoz acid 300 mcg-lycopene 600 mcg-lutein 300 mcg tablet 1 tab PO DAILY 07/12/17 bupropion HCl 150 mg tablet,12 hr sustained-release 150 mg PO DAILY tab 06/10/20 tamsulosin 0.4 mg capsule 0.4 mg PO QHS 06/10/20 cholecalciferol (vitamin D3) [Vitamin D3] 25 mcg PO QHS 09/15/21 fluticasone propionate 2 spray INTRANASAL DAILY 09/15/21 clopidogrel 75 mg PO DAILY 30 Days #30 tab 09/16/21 isosorbide mononitrate 30 mg PO DAILY 30 Days #30 tab 09/16/21 ABG / Lab / Microbiology Data Result Diagrams: 09/16/21 02:58 09/16/21 02:58 Discharge Plan Admission Admit Date/Time: 09/15/21 13:27 Primary Reason for Your Visit: chest pain Attending Provider: Alexandria Abdul Primary Care Provider: [facility],[place] Consulting Providers: Darion Camarena ; Alexa Kelly ; Neto Almeida ; Devendra Child ; Miguel Angel Rico ; Thom Lopez ; Marni Alcantara ; Ovi Lozano ; Xochilt Chambers ; Sebastian Roque ; Jase Salinas ; Angelo Sebastian ; Emmanuel Campbell ORGANIZATIONAL DEVELOPMENT DIRECTOR ; Ct Vega ORGANIZATIONAL DEVELOPMENT DIRECTOR ; Ilda Hanson PA Instructions Additional Instructions / Restrictions: Begin isosorbide 09/17/21. Discharge Orders/Prescriptions Prescriptions: New isosorbide mononitrate 30 mg Tablet Extended Release 24 Hr 30 mg PO DAILY 30 Days Qty: 30 RF: 0 clopidogrel 75 mg Tablet 75 mg PO DAILY 30 Days Qty: 30 RF: 0 Continued atenolol 50 mg tablet 50 mg PO BID RF: 0 aspirin [Adult Aspirin Regimen] 81 mg tablet,delayed release (DR/EC) 81 mg PO QHS RF: 0 losartan 50 mg tablet 50 mg PO QHS RF: 0 omega-3 acid ethyl esters 1 gram capsule 1 g PO QHS RF: 0 atorvastatin 40 mg tablet 40 mg PO QHS RF: 0 bupropion HCl 150 mg tablet sustained-release 12 hr 150 mg PO DAILY RF: 0 falretmi-biq-NZ-lycopen-lutein [Centrum Silver Men] 300-600-300 mcg tablet 1 tab PO DAILY RF: 0 escitalopram oxalate 10 mg tablet 10 mg PO DAILY RF: 0 tamsulosin 0.4 mg capsule 0.4 mg PO QHS RF: 0 fluticasone propionate 50 mcg/actuation [place],Suspension 2 spray INTRANASAL DAILY RF: 0 cholecalciferol (vitamin D3) [Vitamin D3] 25 mcg (1,000 unit) Tablet 25 mcg PO QHS RF: 0 Referrals / Follow Up: Jase Salinas MD [STAFF PHYSICIAN] - [facility]eks [facility] [Primary Care Provider] - In 1 Week Disposition Disposition (needs filled in before D/C Order can be placed): Home, Self Care Charges/Coding Addendum Addendum: This patient was seen in conjunction with Margareth Blevins NP. I have independently interviewed and examined the patient and reviewed pertinent historical, laboratory, and other data. I have reviewed her note and concur with her documentation 76-year-old male with past medical history of CAD status post CABG and PCI, status post pacemaker, hyperlipidemia, who follows with cardiology in the outpatient comes in with complaints of chest discomfort that started on the morning of admission. Chest pain woke him up and had been progressive, seems to radiate to his neck and left arm. There was no associated dizziness or palpitations or nausea or vomiting. He received nitroglycerin in the ED and appeared to help. In the ED, his admitting blood work was unremarkable except for elevated troponin 89 and 118. This was discussed with cardiology who recommended the patient be kept on heparin drip. His troponin trended up to 5.5. He was continued on beta-blockers, statin, 2D echo showed normal EF of 55%. He underwent cardiac catheterization that showed multivessel CAD; medical therapy was recommended. He was started on isosorbide mononitrate and Plavix. Physical Exam: Gen: Comfortable, not pale, not jaundiced CVS:HS I +II, regular, no murmurs RESP: Diminished at lung bases GI: BS present and normal, soft, nontender, no palpable organs EXT:No edema Time spent coordinating patient's care, discussing with cardiology and nursin minutes Visit Charges Inpatient E&M: 83900 Disch Hosp
--- NOTE | 2021-09-16 12:00 | CASEMGMT ---
SHELIA SYLVESTER assessment: Face to Face with patient for initial transition planning/care coordination assessment. SHELIA SYLVESTER introduced self and role at [facility], pt voices understanding and consents to assessment. Pt is lying in bed in no distress on room air. Pt is A/Ox 4 and answers questions appropriately. Pt's daughter is at bedside during assessment. Care providers, pharmacy, and demographics verified. Presentation: Pt c/o CP x2 days Admitting dx: NSTEMI PCP: [facility] Specialists: Brad cardio [place] [facility] Living Will/HPOA: Pt does not have LW/HPOA and declines AD info at this time. LNOK: Mitzy Ragland, daughter Living Arrangements: Pt lives alone in 1 story home with 1-2 steps in and states no concerns at home. Pt is independent with ADL's. Transportation: Pt drives self and states no transportation concerns. DME/HHC: Pt states no current DME or need for any further DME. Pt states no hx of HHC or SNF. Pt states no concerns with going home at time of discharge. Pt is retired. Pt states does not smoke cigarettes(quit 30 years ago) and states has a beer about once/week. Pt voices no further concerns/needs. CM to follow for any further discharge planning/needs. Advised pt to ask for CM if any further questions/concerns/needs arise, voices understanding. Pt Goal: Home Plan[place] SHELIA SYLVESTER
--- NOTE | 2021-09-16 12:35 | PHA.DC.MC ---
Pharmacy Service has performed discharge medication reconciliation and counseling for this patient. 1. CLOPIDOGREL 75MG PO DAILY 2. ISOSORBIDE MONONITRATE 30MG PO DAILY The patient's discharge medication list was reviewed for discrepancies and discrepancies were resolved. Home Medications aspirin 81 mg tablet,delayed release 81 mg PO QHS 07/09/17 atenolol 50 mg tablet 50 mg PO BID tab 07/09/17 atorvastatin 40 mg tablet 40 mg PO QHS 07/09/17 losartan 50 mg tablet 50 mg PO QHS 07/09/17 omega-3 acid ethyl esters 1 gram capsule 1 g PO QHS 07/09/17 escitalopram oxalate 10 mg tablet 10 mg PO DAILY 07/12/17 trpojsun-mkl-rjjfb acid 300 mcg-lycopene 600 mcg-lutein 300 mcg tablet 1 tab PO DAILY 07/12/17 bupropion HCl 150 mg tablet,12 hr sustained-release 150 mg PO DAILY tab 06/10/20 tamsulosin 0.4 mg capsule 0.4 mg PO QHS 06/10/20 cholecalciferol (vitamin D3) [Vitamin D3] 25 mcg PO QHS 09/15/21 fluticasone propionate 2 spray INTRANASAL DAILY 09/15/21 clopidogrel 75 mg PO DAILY 30 Days #30 tab 09/16/21 isosorbide mononitrate 30 mg PO DAILY 30 Days #30 tab 09/16/21 The patient was counseled on the following discharge medications and changes in medications for homegoing were reviewed. The Reason for Use, instructions for use, and potential side effects were reviewed for all new medications. The patient's questions regarding all of their medications were answered. The patient was able to verbally demonstrate an understanding of their discharge medications.
[2021-09-16] MEDS: Clopidogrel Bisulfate 75 MG Tablet PO (12:54)
== END 2021-09-16 14:16 | disposition home or self-care (01) | DRG 282 ==
LOC: ED 09:06 → PCU 11:53
PROVIDERS: Internal Medicine Cardiovascular Disease; Admitting Provider Internal Medicine; Emergency Provider Emergency Medicine; Visit Provider Internal Medicine
DX: I21.4 Non-ST elevation (NSTEMI) myocardial infarction (principal); I49.5 Sick sinus syndrome; Z95.1 Presence of aortocoronary bypass graft; I25.110 Atherosclerotic heart disease of native coronary artery with unstable angina pectoris; E78.5 Hyperlipidemia, unspecified; I10 Essential (primary) hypertension; F41.9 Anxiety disorder, unspecified; I44.0 Atrioventricular block, first degree; N40.0 Benign prostatic hyperplasia without lower urinary tract symptoms; I34.0 Nonrheumatic mitral (valve) insufficiency; F32.A Depression, unspecified; Z79.82 Long term (current) use of aspirin; Z79.899 Other long term (current) drug therapy; Z95.0 Presence of cardiac pacemaker; Z87.891 Personal history of nicotine dependence
CPT/HCPCS: 36415; 71045; 80048; 80053; 84484; 85025; 85610; 85730; 93005; 93306; 93455; 99152; 99153; 99251; 99285; J7030; Q9957; A4216; C1769; C1894; G0463; Q9967

== ENCOUNTER → 2021-12-22 | Outpatient (CLI) | payer MEDICARE, OTHER, SELFPAY ==
[2021-12-22 15:03] LABS: Absolute Lymphocyte Count 1.35 X10^3/uL (0.83-4.51); Absolute Neutrophil Count 5.2 X10^3/uL (2.0-7.7); Basophil# 0.02 X10^3/uL; Basophil% 0.3 % (0-1); Eosinophil# 0.08 X10^3/uL; Eosinophils% 1.1 % (0-5); Hematocrit 41.5 % (40-54); Lymphocyte # 1.35 X10^3/ul (0.83-4.51); Lymphocyte % 18.2 % (19-41); Mean Corp Hgb Conc 33.7 g/dL (32-36); Mean Corpuscular Volume 91.8 fL (80-94); Mean Platelet Vol. 10.5 fl (6.2-12.0); Monocyte# 0.71 X10^3/uL; Monocyte% 9.6 % (0-10); NRBC Flagged by Analyzer 0 % (0-5); Neutrophil # 5.22 X10^3/uL (2.7-7.7); Neutrophil % 70.4 % (47-70); Platelet Count 152 K/mm3 (150-450); RBC Distribution Width CV 12.6 % (11.6-14.6); RBC Distribution Width SD 42.5 fl (35.1-43.9); Red Blood Count 4.52 M/mm3 (4.6-6.2); White Blood Count 7.4 K/mm3 (4.4-11.0)
[2021-12-22 18:36] LABS: Anion Gap 8 (5-15); BUN 14 mg/dL (7-18); BUN/Creat Ratio 15.5 RATIO (10-20); Calcium,Total 8.9 mg/dL (8.5-10.1); Chloride 107 mmol/L (98-107); EST Glomerular Filtration Rate 87 mL/min (>60); Est Glom Filt Rate - Afr Amer 105 mL/min (>60); Glucose 107 mg/dL (74-106); Potassium 3.8 mmol/L (3.5-5.1); Sodium Level 141 mmol/L (136-145); T4 Free Direct 0.91 ng/dL (0.76-1.46); Thyroid Stim Hormone (TSH) 1.71 uIU/mL (0.358-3.74)
== END | disposition home or self-care (01) ==
LOC: LAB 13:44
PROVIDERS: Visit Provider Nurse Practitioner Gerontology
DX: R53.83 Other fatigue (principal)
CPT/HCPCS: 36415; 80048; 84439; 84443; 85025

== ENCOUNTER → 2023-03-10 | Outpatient (CLI) | payer MEDICARE, OTHER, SELFPAY ==
--- NOTE | 2023-03-10 12:54 | ECHOD_ITS ---
Reason For Study: ASHD/CAD Procedure This was a 2D Doppler, Color Flow transthoracic echocardiogram. Exam performed in department. Left Ventricle Normal LV size. Mild concentric left ventricular hypertrophy. The left ventricular ejection fraction is 55 %. Diastolic function is indeterminate. Mild apical and inferior basal hypokinesis. Right Ventricle ICD or pacer leads identified within the right ventricle. Atria The left atrium is mildly enlarged. ICD or pacer leads identified within the right atrium. Mitral Valve Mild (1+) mitral valve insufficiency. Tricuspid Valve Moderate (2+) tricuspid valve insufficiency. Right ventricular systolic pressure estimated to be 42 mmHg. Aortic Valve Trisinus/trileaflet aortic valve. Mild (1+) aortic valve insufficiency. Great Vessels Mildly dilated aortic root. MMode/2D Measurements & Calculations LVIDd: 5.1 cm IVSd: 1.4 cm Ao root diam: 3.6 cm LVIDs: 4.2 cm LVPWd: 1.0 cm RVDd: 2.7 cm FS: 16.3 % LAV(MOD-bp): 51.5 ml SV(MOD-sp4): 48.1 ml LVAd ap4: 32.2 cm2 LAV(MOD-bp) Indexed: 27.5 ml/m2 LVLd ap4: 8.4 cm LAV(MOD-sp2): 48.9 ml EDV(MOD-sp4): 99.6 ml LAV(MOD-sp4): 45.3 ml EDV(sp4-el): 104.4 ml LVAs ap4: 20.9 cm2 LVLs ap4: 7.3 cm ESV(MOD-sp4): 51.6 ml ESV(sp4-el): 50.9 ml EF(MOD-sp4): 48.2 % EF(sp4-el): 51.3 % SV(sp4-el): 53.6 ml LA dimension(2D): 4.3 cm LA A4 area: 17.7 cm2 TAPSE: 1.2 cm RA A4 area: 12.3 cm2 Time Measurements MV dec time: 0.19 sec Doppler Measurements & Calculations MV E max art: 64.8 cm/sec Lat Peak E' Art: 11.1 cm/sec Med Peak E' Art: 5.3 cm/sec MV A max art: 78.3 cm/sec E/E' lat: 5.9 E/E' med: 12.3 MV E/A: 0.83 MV V2 max: 81.4 cm/sec Ao V2 max: 138.0 cm/sec MV max P.7 mmHg MV dec slope: 345.9 cm/sec2 Ao max P.6 mmHg MV V2 mean: 54.7 cm/sec Ao V2 mean: 90.4 cm/sec MV mean P.3 mmHg Ao mean P.8 mmHg MV V2 VTI: 30.5 cm Ao V2 VTI: 31.8 cm AV (velocity ratio): 0.76 AI max art: 361.4 cm/sec LV V1 max: 105.4 cm/sec PA V2 max: 93.9 cm/sec AI max P.2 mmHg LV V1 max P.4 mmHg PA V2 mean: 77.2 cm/sec AI dec slope: 93.5 cm/sec2 LV V1 mean P.3 mmHg AI P1/2t: 1133 msec LV V1 mean: 70.5 cm/sec LV V1 VTI: 24.2 cm TR max art: 286.1 cm/sec TR max P.7 mmHg ECHO/Echo Complete Interpretation Summary Mild concentric left ventricular hypertrophy. The left ventricular ejection fraction is 55 %. Mild apical and inferior basal hypokinesis. Diastolic function is indeterminate. Mild (1+) mitral valve insufficiency. Moderate (2+) tricuspid valve insufficiency. Right ventricular systolic pressure estimated to be 42 mmHg. Mildly dilated aortic root. Ordering Physician: Dewey Pop Referring Physician: Dewey Pop Performed By: Aixa Levy RCS
== END | disposition home or self-care (01) ==
PROVIDERS: Referring Provider Internal Medicine Cardiovascular Disease; Visit Provider Internal Medicine Cardiovascular Disease
DX: I25.10 Atherosclerotic heart disease of native coronary artery without angina pectoris (principal); I47.29 Other ventricular tachycardia; I10 Essential (primary) hypertension; Z95.0 Presence of cardiac pacemaker
CPT/HCPCS: 93306

== ENCOUNTER 2023-05-29 13:09 | Emergency (ER) | payer MEDICARE, OTHER, SELFPAY ==
[2023-05-29 13:09] VITALS: BP 107/77; PULSE 78; RESP 16; TEMP 36.4; O2SAT 96; BMI 23.2
--- NOTE | 2023-05-29 13:23 | EDS_ITS ---
HPI HPI - URI History of Present Illness Chief Complaint: Cold Sx Informant: patient Onset/Context/Timing Onset: Days Context: Gradual Onset Timing: Continuous Current Severity: Mild Maximum Severity: Mild Associated Symptoms Associated Symptoms: Positive for Nasal Congestion and Nonproductive cough; Negative for Sinus Pressure, Nausea, Vomiting, Diarrhea, Shortness of Breath, Chest Pain, Hemoptysis or Productive Cough Narrative Narrative: 78-year-old male history of SD with triple bypass, pacemaker and stents. Has had URI symptoms for about a week. With nasal congestion and runny nose states he is not getting better and wants to know what the specific cause. He denies any shortness of breath. Prior similar symptoms: Yes Recent Illness/Hospitalization: No ROS ROS ED ROS Narrative Nasal congestion. Runny nose. Sneezing and coughing. Review of Systems ROS Unobtainable: Denies due to encephalopathy Constitutional Constitutional ED: Denies chills or fever(s) Eyes Eyes: Denies blurry vision ENT ENT ED: Reports rhinorrhea; Denies ear pain or sore throat Cardiovascular Cardiovascular: Denies chest pain or palpitations Respiratory/Chest Respiratory/Chest: Reports cough; Denies dyspnea or dyspnea on exertion Gastrointestinal Gastrointestinal: Denies abdominal pain, constipation, diarrhea, melena, nausea or vomiting Genitourinary Genitourinary ED: Denies dysuria or hematuria Musculoskeletal Musculoskeletal: Denies arthralgias, back pain, myalgias or neck pain Integumentary Denies abscess or Abrasions Neurologic Neurologic: Denies headache(s) or paresthesias Psychiatric Psychiatric: Denies anxiety, depression, suicidal ideation or suicidal thoughts Endocrine Endocrinology: Denies cold intolerance Hematologic/Lymphatic Hematologic/Lymphatic: Denies easy bleeding or easy bruising Allergic/Immunologic Allergic/Immunologic ED: Denies mouth swelling or tongue swelling [facility] Medical History Atherosclerotic heart disease of [place] coronary artery without angina pectoris Fatigue Hyperlipidemia Non-ST elevation (NSTEMI) myocardial infarction Sick sinus syndrome Home Medications aspirin 81 mg tablet,delayed release (Adult Aspirin Regimen) 81 mg PO QHS heart health 07/09/17 [History Last Taken Unknown] atenolol 50 mg tablet 50 mg PO BID blood pressure 07/09/17 [History Last Taken 10/25/17] atorvastatin 40 mg tablet 40 mg PO QHS cholesterol 07/09/17 [History Last Taken Unknown] losartan 50 mg tablet 50 mg PO QHS blood pressure 07/09/17 [History Last Taken 10/25/17] omega-3 acid ethyl esters 1 gram capsule 1 g PO QHS supplement 07/09/17 [History Last Taken Unknown] escitalopram oxalate 10 mg tablet 10 mg PO DAILY mental health 07/12/17 [History Last Taken Unknown] aanemtoo-bs-mxzsh 300 mcg-K 60 mcg-lycop 600 mcg-lutein 300 mcg tablet (Centrum Silver Men) 1 tab PO DAILY vitamin 07/12/17 [History Last Taken Unknown] bupropion HCl 150 mg tablet,12 hr sustained-release 150 mg PO DAILY 06/10/20 [History Last Taken Unknown] tamsulosin 0.4 mg capsule 0.4 mg PO QHS prostate 06/10/20 [History Last Taken Unknown] cholecalciferol (vitamin D3) 25 mcg (1,000 unit) tablet (Vitamin D3) 25 mcg PO QHS vitamin 09/15/21 [History Last Taken Unknown] clopidogrel 75 mg tablet 75 mg PO DAILY #90 tabs 10/16/21 [Rx Last Taken Unknown] isosorbide mononitrate 30 mg tablet,extended release 24 hr 30 mg PO DAILY #90 tabs 10/16/21 [Rx Last Taken Unknown] Allergy/AdvReac Type Severity Reaction Status Date / Time lisinopril AdvReac Intermediate Other Verified 02/23/23 13:37 Family History Father , Age 76 Myocardial infarction CAD (coronary artery disease) Mother , Age 63, breast cancer Breast cancer Sister Diabetes benign tumor in brain removed Surgical History Cardiac pacemaker in situ History of coronary artery bypass graft x 3 (~10/16/90) History of left heart catheterization (~09/16/21) Stented coronary artery (~06/29/12) Social History Smoking Status: Former smoker pack-years: 25 alcohol intake: current alcohol intake frequency: holidays/special occasions only substance use type: does not use caffeine: Yes Type: coffee Number of servings: 2 what type of physical activity do you participate in: none EXAM Physical Exam Narrative Exam Narrative: Well-appearing 78-year-old male. Vital signs stable afebrile. Pulse ox 96% room air no signs hypoxia. No distress. H EENT exam unremarkable and clear rhinorrhea. Posterior pharynx normal. Moist extremities. TMs normal bilaterally. Hearing aid right ear. Neck nontender no lymphadenopathy. Lungs clear to auscultation bilaterally. Heart regular rhythm no murmur. Chest wall nontender. Abdomen soft nontender. Moving all 4 extremities. Nontender no edema. Normal sports fitness and wellness director strength. Neurologically is awake and alert with no focal motor deficits. Very benign exam. Const Vital Signs: 05/29/23 13:09 05/29/23 13:09 Temperature 97.6 F L Temperature Source Temporal Pulse Rate 78 Respiratory Rate 16 Respiratory Effort Normal Non-Labored Respiratory Pattern Normal Blood Pressure 107/77 Blood Pressure Mean 87 Pulse Ox 96 Oxygen Delivery Method Room Air Positive well nourished and well developed; Negative for obese, cachectic or contractures General Appearance ED: well developed and NAD; Negative for cachectic, contractures, cyanotic, diaphoretic or pallor Nutritional Appearance: Negative for cachectic or obese HEENT Reports moist mucous membranes; Denies dry mucous membranes normocephalic Face and Sinus: Negative for sinus tenderness, maxillary instability or facial tenderness Mouth ED: No dry mucous membranes Mouth: No dry mucous membranes Teeth and Gingiva: Negative for caries Throat: posterior oropharynx normal Eyes PERRL and EOMs intact bilaterally General Eye ED: Negative for pale conjunctiva, scleral icterus or other Neck no lymphadenopathy, supple, no meningeal signs and no JVD General: Negative for anterior neck swelling, lymphadenopathy or other Resp normal respiratory effort and clear to auscultation bilaterally Effort and Inspection: Negative for retractions Auscultation: Negative for rales, rhonchi, wheezes or diminished lung sounds Cardio S1 normal heart sound, S2 normal heart sound and no murmurs Rate: regular rate Rhythm: regular rhythm GI non-tender, non-distended and no masses Inspection: Negative for abdominal distention Auscultation: normoactive bowel sounds Palpation: soft; Negative for tender or guarding Back/Spine no CVA tenderness and normal ROM General Back: Negative for CVA tenderness Cervical Spine: Negative for cervical spine tenderness Thoracic Spine / Upper Back: Negative for thoracic spinal tenderness Lumbar Spine / Lower Back: Negative for lumbar spinal tenderness Sacrum: Negative for tenderness Extremity normal to inspection and full ROM General Extremety ED: Negative for cyanosis, tenderness or other findings General Extremity: Negative for cyanosis or other findings Neuro oriented x3 and CN's II-XII intact bilaterally Sensorium / Orientation: oriented to person, oriented to place and oriented to time; Negative for orientation impaired, lethargic or stuporous Motor Exam: strength 5/5 throughout Psych mental status grossly normal Appearance: Negative for other Attitude: No agitated Mood & Affect: Negative for depressed, anxious or tearful Skin General Skin Exam: Negative for jaundice or pallor Lesions: no lesions Rashes: no rashes Trauma: Negative for abrasion or laceration MDM MDM MDM Narrative Medical decision making narrative: 78-year-old male suspect viral URI. Viral swab sent and chest x-ray being obtained. Clinically looks well. Repeat exam unchanged patient doing well at 3:28 PM. History & Record Review Discussion w/independent historian: Patient Additional record(s) reviewed:: Prior inpatient record, Prior outpatient record and Prior labs Lab Data Attestation: I reviewed the patient's lab results. Lab results narrative: COVID test negative. Influenza negative. RSV negative. Chest x-ray chronic changes. Radiography Chest X-Ray - ED: 1 View, Read by ED Physician, Read by Radiologist, Heart, [place] ngs, Mediastinum, Bony Structures, No Acute Disease and Chronic Changes Diagnostic Testing: Clinical Impression(s) from Imaging Studies Chest X-Ray 05/29/23 13:55 IMPRESSION: No change from 09/15/2021. Electronically Signed: Norbert Johansen MD at 14:21 EST , Chest x-ray, portable, single view interpreted by myself and radiologist shows no acute abnormality. Chronic changes. No significant change from a year and a half ago. Left-sided pacemaker. Prior sternotomy with wires. Discharge Plan Triage Chief Complaint: Cold Sx ED Provider: Edwin Knapp Dx/Rx/DC Orders Clinical Impression: History of SD (myocardial infarction), Viral URI, Hx of CABG Instructions: ED URI, Viral, No Abx (Adult) Prescriptions: No Action atenolol 50 mg tablet 50 mg PO BID aspirin [Adult Aspirin Regimen] 81 mg tablet,delayed release (DR/EC) 81 mg PO QHS losartan 50 mg tablet 50 mg PO QHS omega-3 acid ethyl esters 1 gram capsule 1 g PO QHS atorvastatin 40 mg tablet 40 mg PO QHS bupropion HCl 150 mg tablet sustained-release 12 hr 150 mg PO DAILY [id number] [Centrum Silver Men] 300-600-300 mcg tablet 1 tab PO DAILY escitalopram oxalate 10 mg tablet 10 mg PO DAILY tamsulosin 0.4 mg capsule 0.4 mg PO QHS isosorbide mononitrate 30 mg tablet extended release 24 hr 30 mg PO DAILY Qty: 90 3RF clopidogrel 75 mg tablet 75 mg PO DAILY Qty: 90 3RF cholecalciferol (vitamin D3) [Vitamin D3] 25 mcg (1,000 unit) Tablet 25 mcg PO QHS [facility] [Primary Care Provider] - As Needed Activity Restrictions/Additional Instructions: Plenty of fluids and rest. Tylenol as needed for any fever. No pneumonia. Your COVID, flu and RSV test were all negative. This is another virus. Should get better on its own. Nasal spray as needed. Disposition Disposition: Home, Self Care
--- NOTE | 2023-05-29 13:55 | RAD_ITS ---
STUDY: X-RAY CHEST REASON FOR EXAM: Male, 78 years old. cough TECHNIQUE: Single AP portable view of the chest. COMPARISON: 09/15/2021 FINDINGS: Left subclavian pacemaker which is unchanged. Status post median sternotomy. There are interstitial fibrotic changes of the lungs. No superimposed alveolar opacity within the lungs to suggest pneumonia or atelectasis. There is no demonstrated pleural abnormality. There is moderate cardiac enlargement. Normal mediastinum and isela. Normal visualized pulmonary arteries. Normal visualized aortic arch and descending thoracic aorta. Normal visualized thoracic spine. Normal visualized ribs, clavicles, and shoulders. There is no demonstrated abnormality of the visualized soft tissue structures of the upper abdomen. RAD/Chest 1 View (Portable) IMPRESSION: No change from 09/15/2021. Electronically Signed: Norbert Johansen MD at 14:21 EST ,
== END 2023-05-29 15:38 | disposition home or self-care (01) ==
PROVIDERS: Emergency Provider Emergency Medicine; Visit Provider Emergency Medicine
DX: J06.9 Acute upper respiratory infection, unspecified (principal); I49.5 Sick sinus syndrome; I25.10 Atherosclerotic heart disease of native coronary artery without angina pectoris; E78.5 Hyperlipidemia, unspecified; I25.2 Old myocardial infarction; Z95.0 Presence of cardiac pacemaker; Z95.1 Presence of aortocoronary bypass graft; Z95.5 Presence of coronary angioplasty implant and graft; Z79.02 Long term (current) use of antithrombotics/antiplatelets; Z79.82 Long term (current) use of aspirin; Z79.899 Other long term (current) drug therapy; Z87.891 Personal history of nicotine dependence
CPT/HCPCS: 71045; 87428; 87807; 99282

== ENCOUNTER → 2023-07-15 | Outpatient (CLI) | payer MEDICARE, OTHER, SELFPAY | END | disposition home or self-care (01) | LOC: LABSPEC 15:10 | PROVIDERS: Referring Provider Otolaryngology Otolaryngology/Facial Plastic Surgery; Visit Provider Otolaryngology Otolaryngology/Facial Plastic Surgery | DX: J32.8 Other chronic sinusitis (principal) | CPT/HCPCS: 87070; 87205 ==

== ENCOUNTER 2023-09-07 09:33 | Emergency (ER) | payer MEDICARE, OTHER, SELFPAY ==
[2023-09-07 09:33] VITALS: BP 122/78; PULSE 85; RESP 14; TEMP 36.2; O2SAT 100; BMI 22.5
--- NOTE | 2023-09-07 10:08 | FORE_PTH ---
PATIENT: MARTIN GOFF LOC: ED U#:[id number] AGE/SX: 78/M ROOM: RE09/07/[address]: Dr. Reinier Marr MD : 1945 BED: DIS: 09/07/2023 SPEC #: [id number] RECD: 09/07/23 11:12 STATUS: FLOYD SONIA #: [id number] STONEY: 09/07/23 10:[address]: Reinier Marr DEPT: SURGICAL PATHOLOGY RECD BY: Lidya Pierre ENTERED: 09/07/23 11:12 SP TYPE: FOREIGN B HUMAIRA DR: [facility] Tissues: FOREIGN BODY Procedures: Surgery Specimen Level I HEADER OPERATION: Arthropod ID PRE-OP DIAGNOSIS: Arthropod ID TISSUE SUBMITTED: Foreign body MICROSCOPIC DIAGNOSIS Tick removed from left leg: Consistent with engorged female Ixodes scapularis tick, (black legged deer tick). AM/mr 09/07/23 COMMENT Gross photographs of the specimen have been obtained. MICROSCOPIC DESCRIPTION Slides are reviewed. GROSS DESCRIPTION Tick on left leg. The specimen consists of an engorged tick measuring 7.0mm x 5.0mm x 2.5mm. The specimen is examined under the grossing microscope and is then fixed for preservation. NANCY/ 09/07/23TC: CPT:23676
--- NOTE | 2023-09-07 10:32 | EX.ED.VISEXT ---
HPI <Shannan Phillips RN - Last Filed: 09/07/23 10:39> History of Present Illness HPI Narrative: Patient is a 78-year-old male with past medical history significant for hypertension, CAD, sick sinus syndrome with a pacemaker, and hyperlipidemia who presents to the ED for a tick bite to the left posterior upper leg. Patient was able to remove the tick in its entirety and has brought with him to the ED. He has approximately 0.5 cm round induration at the site. Slight erythema noted. No tenderness or edema. He thinks the tick had been present for about 3 days as he thought it was originally a skin tag. He denies fever or chills. No rashes. Denies recent hospitalization or travel. Chief Complaint: Bite Informant: patient Onset/Context/Timing Onset: Days (3) Current Severity: 0/10 Maximum Severity: 0/10 Associated Symptoms Associated Symptoms: Negative for Parasthesia or Weakness Narrative Narrative: See HPI Tetanus Immunization: Unknown ROS <Shannan Phillips RN - Last Filed: 09/07/23 10:39> ROS ED Constitutional Constitutional ED: Denies chills or fever(s) Eyes Eyes: Denies change in vision ENT ENT ED: Denies ear pain, rhinorrhea or sore throat Cardiovascular Cardiovascular: Denies chest pain or palpitations Respiratory/Chest Respiratory/Chest: Denies cough or dyspnea Gastrointestinal Gastrointestinal: Denies abdominal pain, diarrhea, nausea or vomiting Genitourinary Genitourinary ED: Denies dysuria, hematuria or urinary frequency Musculoskeletal Musculoskeletal: Denies arthralgias, back pain, myalgias or neck pain Integumentary Denies abscess, Abrasions or rash Neurologic Neurologic: Denies headache(s), paresthesias or weakness Psychiatric Psychiatric: Denies anxiety or depression Endocrine Endocrinology: Denies polydipsia, polyphagia or polyuria Hematologic/Lymphatic Hematologic/Lymphatic: Denies easy bleeding or easy bruising PFS <Shannan Phillips RN - Last Filed: 09/07/23 10:39> [facility] Medical History Atherosclerotic heart disease of [place] coronary artery without angina pectoris Coronary artery disease Dyslipidemia Fatigue Hyperlipidemia Hypertension Non-ST elevation (NSTEMI) myocardial infarction Nonsustained ventricular tachycardia Sick sinus syndrome Home Medications aspirin 81 mg tablet,delayed release (Adult Aspirin Regimen) 81 mg PO QHS heart health 07/09/17 [History Last Taken Unknown] atenolol 50 mg tablet 50 mg PO BID blood pressure 07/09/17 [History Last Taken 10/25/17] atorvastatin 40 mg tablet 40 mg PO QHS cholesterol 07/09/17 [History Last Taken Unknown] losartan 50 mg tablet 50 mg PO QHS blood pressure 07/09/17 [History Last Taken 10/25/17] omega-3 acid ethyl esters 1 gram capsule 1 g PO QHS supplement 07/09/17 [History Last Taken Unknown] escitalopram oxalate 10 mg tablet 10 mg PO DAILY mental health 07/12/17 [History Last Taken Unknown] gpkqcjuy-tj-uxnmf 300 mcg-K 60 mcg-lycop 600 mcg-lutein 300 mcg tablet (Centrum Silver Men) 1 tab PO DAILY vitamin 07/12/17 [History Last Taken Unknown] bupropion HCl 150 mg tablet,12 hr sustained-release 150 mg PO DAILY 06/10/20 [History Last Taken Unknown] tamsulosin 0.4 mg capsule 0.4 mg PO QHS prostate 06/10/20 [History Last Taken Unknown] cholecalciferol (vitamin D3) 25 mcg (1,000 unit) tablet (Vitamin D3) 25 mcg PO QHS vitamin 09/15/21 [History Last Taken Unknown] clopidogrel 75 mg tablet 75 mg PO DAILY #90 tabs 10/16/21 [Rx Last Taken Unknown] isosorbide mononitrate 30 mg tablet,extended release 24 hr 30 mg PO DAILY #90 tabs 10/16/21 [Rx Last Taken Unknown] diltiazem HCl 120 mg capsule,24 hr,extended release 120 mg PO DAILY #30 caps 09/01/23 [Rx Last Taken Unknown] magnesium oxide 420 mg tablet 420 mg PO DAILY 09/01/23 [History Last Taken Unknown] Allergy/AdvReac Type Severity Reaction Status Date / Time lisinopril AdvReac Intermediate Other Verified 09/07/23 09:34 Family History Father , Age 76 Myocardial infarction CAD (coronary artery disease) Mother , Age 63, breast cancer Breast cancer Sister Diabetes benign tumor in brain removed Surgical History Cardiac pacemaker in situ History of coronary artery bypass graft x 3 (~10/16/90) History of left heart catheterization (~09/16/21) Stented coronary artery (~06/29/12) Social History Smoking Status: Former smoker pack-years: 25 alcohol intake: current alcohol intake frequency: holidays/special occasions only substance use type: does not use caffeine: Yes Type: coffee Number of servings: 2 what type of physical activity do you participate in: none EXAM <Shannan Phillips RN - Last Filed: 09/07/23 10:39> Physical Exam Narrative Exam Narrative: Patient is awake, alert, cooperative, good historian. Const Vital Signs: 09/07/23 09:33 09/07/23 11:00 Temperature 97.2 F L 97.2 F L Temperature Source Temporal Pulse Rate 85 85 Respiratory Rate 14 14 Blood Pressure 122/78 H 122/78 H Blood Pressure Mean 92 92 Pulse Ox 100 100 Oxygen Delivery Method Room Air Positive well nourished and well developed General Appearance ED: well developed and NAD HEENT Reports moist mucous membranes Eyes PERRL Neck full ROM Lymph Lymphatic Narrative: No cervical lymphadenopathy noted. Chest Wall Chest Narrative: Chest rise symmetrical. Resp normal respiratory effort and clear to auscultation bilaterally Auscultation: Negative for rales, rhonchi or wheezes Cardio regular rate, regular rhythm, S1 normal heart sound and S2 normal heart sound GI non-tender and non-distended Auscultation: normoactive bowel sounds Palpation: soft no CVA tenderness Back/Spine no CVA tenderness Cervical Spine: Negative for cervical spine tenderness Thoracic Spine / Upper Back: Negative for thoracic spinal tenderness Lumbar Spine / Lower Back: Negative for lumbar spinal tenderness Extremity normal to inspection and full ROM General Extremety ED: Negative for deformity, edema or tenderness General Extremity: Negative for deformity or edema Neuro oriented x3 Sensorium / Orientation: alert Motor Exam: strength 5/5 throughout Psych mental status grossly normal Skin skin turgor normal Image ED - Lower Extremity Diagram: 1. 0.5 cm indurated area with mild erythema. No drainage or tenderness noted. <Dr. Reinier Marr MD - Last Filed: 09/07/23 15:14> Physical Exam Const Vital Signs: 09/07/23 09:33 09/07/23 11:00 Temperature 97.2 F L 97.2 F L Temperature Source Temporal Pulse Rate 85 85 Respiratory Rate 14 14 Blood Pressure 122/78 H 122/78 H Blood Pressure Mean 92 92 Pulse Ox 100 100 Oxygen Delivery Method Room Air MDM <Shannan Pihllips RN - Last Filed: 09/07/23 10:39> [facility] Narrative Medical decision making narrative: Tick will be sent to the lab for identification. Tick titers will be obtained to evaluate for Lyme disease. Differential Diagnosis Differential Diagnosis: Lyme disease Treatment and Re-Evaluation Narrative: Tick was sent to lab for identification. Lyme titers drawn to evaluate for Lyme disease. Patient will be contacted if these are positive and placed on doxycycline. Upon reevaluation, patient awake and alert sitting on the ED cot. Patient informed if his Lyme titers are positive, he will be contacted and placed on doxycycline. He is also informed to return to the ED for symptoms of Feng's palsy such as eye drooping or facial drooping. He will follow-up with his primary care provider as needed. Patient verbalized understanding and agreeable with plan. Patient to be discharged home. <Dr. Reinier Marr MD - Last Filed: 09/07/23 15:14> [facility] Narrative Medical decision making narrative: Tick will be sent to the lab for identification. Tick titers will be obtained to evaluate for Lyme disease. I have personally performed a face to face assessment of the patient and have reviewed the REI Note. I performed a substantive portion of the visit including all aspects of the following. My helm findings include: History is remarkable for tick bite posterior left thigh. The tick was in place for couple of days. Patient has no neurologic symptoms or neuro logic findings. Exam is patient brought intake. The site of bite is not infected. His exam is otherwise unremarkable. Medical Decision Making tick was sent for analysis and Lyme titer was drawn. Other additions or changes: Patient was informed if he develops any neurologic symptoms or if his Lyme titer is positive he will be contacted and started on doxycycline. If he is symptomatic he will require a 21 to 42-day course of treatment otherwise 14-day course is appropriate. Discharge Plan Triage Chief Complaint: Bite ED Provider: Reinier Marr Dx/Rx/DC Orders Clinical Impression: History of sick sinus syndrome, Tick bite, History of hypertension Instructions: ED Tick Facts, ED Tick Bite, No Abx Tx Prescriptions: No Action atenolol 50 mg tablet 50 mg PO BID aspirin [Adult Aspirin Regimen] 81 mg tablet,delayed release (DR/EC) 81 mg PO QHS losartan 50 mg tablet 50 mg PO QHS omega-3 acid ethyl esters 1 gram capsule 1 g PO QHS atorvastatin 40 mg tablet 40 mg PO QHS bupropion HCl 150 mg tablet sustained-release 12 hr 150 mg PO DAILY [id number] [Centrum Silver Men] 300-600-300 mcg tablet 1 tab PO DAILY escitalopram oxalate 10 mg tablet 10 mg PO DAILY tamsulosin 0.4 mg capsule 0.4 mg PO QHS isosorbide mononitrate 30 mg tablet extended release 24 hr 30 mg PO DAILY Qty: 90 3RF clopidogrel 75 mg tablet 75 mg PO DAILY Qty: 90 3RF magnesium oxide 420 mg tablet 420 mg PO DAILY diltiazem HCl 120 mg capsule,extended release 24 hr 120 mg PO DAILY Qty: 30 1RF cholecalciferol (vitamin D3) [Vitamin D3] 25 mcg (1,000 unit) Tablet 25 mcg PO QHS [facility] Provider[facility] [Primary Care Provider] - Activity Restrictions/Additional Instructions: If your Lyme titer comes back positive, we will contact you and placed you on doxycycline. If you develop symptoms of Feng's palsy such as eye drooping, return to the ED immediately as this is a sign of Lyme disease. Follow-up with your primary care provider as needed. Return to the ED for worsening or concerning symptoms. Disposition Disposition: Home, Self Care Discharge Date/Time: 09/07/23 11:01
[2023-09-07 11:00] VITALS: BP 122/78; PULSE 85; RESP 14; TEMP 36.2; O2SAT 100
[2023-09-09 15:08] LABS: Lyme IgG P18 Ab Absent (.); Lyme IgG P23 Ab Absent (.); Lyme IgG P28 Ab Absent (.); Lyme IgG P30 Ab Absent (.); Lyme IgG P39 Ab Absent (.); Lyme IgG P41 Ab Present (.); Lyme IgG P45 Ab Absent (.); Lyme IgG P58 Ab Absent (.); Lyme IgG P66 Ab Absent (.); Lyme IgG P93 Ab Absent (.); Lyme IgG WB Interpretation Negative (.); Lyme IgM P23 Ab Absent (.); Lyme IgM P39 Ab Absent (.); Lyme IgM P41 Ab Absent (.); Lyme IgM WB Interpretation Negative (.); Lyme Scn Total Ab w/Rflx Negative (Negative)
[2023-09-15 13:34] LABS: Arthropod ID POSITIVE (NEGATIVE)
== END 2023-09-07 11:01 | disposition home or self-care (01) ==
PROVIDERS: Emergency Provider Emergency Medicine; Visit Provider Emergency Medicine
DX: S70.372A Other superficial bite of left thigh, initial encounter (principal); I49.5 Sick sinus syndrome; I25.10 Atherosclerotic heart disease of native coronary artery without angina pectoris; E78.5 Hyperlipidemia, unspecified; Z87.891 Personal history of nicotine dependence; I10 Essential (primary) hypertension; Z95.0 Presence of cardiac pacemaker; I25.2 Old myocardial infarction; Z79.82 Long term (current) use of aspirin; Z79.899 Other long term (current) drug therapy; Z95.5 Presence of coronary angioplasty implant and graft; W57.XXXA Bitten or stung by nonvenomous insect and other nonvenomous arthropods, initial encounter
CPT/HCPCS: 86617; 86618; 87168; 88300; 99282

== ENCOUNTER → 2023-10-29 | Outpatient (CLI) | payer MEDICARE, OTHER, SELFPAY ==
[2023-10-29 10:08] LABS: ALB/GLOB Ratio 1.2 RATIO (0.9-2.4); AST(SGOT) 23 U/L (15-37); Alanine Aminotransfer ALT/SGPT 47 U/L (16-61); Albumin, Serum 3.7 g/dL (3.2-5.0); Alkaline Phosphatase 97 U/L (45-117); Anion Gap 6 (5-15); BUN 16 mg/dL (7-18); BUN/Creat Ratio 18.6 RATIO (10-20); Calcium,Total 8.8 mg/dL (8.5-10.1); Chloride 109 mmol/L (98-107); Creatinine, Serum 0.86 mg/dL (0.70-1.30); EST Glomerular Filtration Rate 92 mL/min (>60); Est Glom Filt Rate - Afr Amer 111 mL/min (>60); Glucose 130 mg/dL (74-106); Potassium 3.8 mmol/L (3.5-5.1); Protein, Total 6.7 g/dL (6.4-8.2); Sodium Level 139 mmol/L (136-145)
[2023-10-29 10:12] LABS: Cholesterol 170 mg/dL (200); High Density Lipoprotein 48 mg/dL; Triglycerides 75 mg/dL; Very Low Density Lipoprotein 15 mg/dL (5-40)
[2023-11-04 01:07] LABS: Lyme IgG P18 Ab Absent (.); Lyme IgG P23 Ab Absent (.); Lyme IgG P28 Ab Absent (.); Lyme IgG P30 Ab Absent (.); Lyme IgG P39 Ab Absent (.); Lyme IgG P41 Ab Present (.); Lyme IgG P45 Ab Absent (.); Lyme IgG P58 Ab Present (.); Lyme IgG P66 Ab Absent (.); Lyme IgG P93 Ab Present (.); Lyme IgG WB Interpretation Negative (.); Lyme IgM P23 Ab Absent (.); Lyme IgM P39 Ab Absent (.); Lyme IgM P41 Ab Absent (.); Lyme IgM WB Interpretation Negative (.)
== END | disposition home or self-care (01) ==
LOC: LAB 09:11
PROVIDERS: Internal Medicine Cardiovascular Disease; Nurse Practitioner Gerontology; Referring Provider Physician Assistant Medical; Visit Provider Physician Assistant Medical
DX: E78.5 Hyperlipidemia, unspecified (principal); I47.29 Other ventricular tachycardia; I10 Essential (primary) hypertension; I25.10 Atherosclerotic heart disease of native coronary artery without angina pectoris; R53.83 Other fatigue; W57.XXXA Bitten or stung by nonvenomous insect and other nonvenomous arthropods, initial encounter
CPT/HCPCS: 36415; 80053; 80061; 83735; 86617

== ENCOUNTER → 2024-03-01 | Outpatient (CLI) | payer MEDICARE, OTHER, SELFPAY ==
[2024-03-01 14:36] LABS: ALB/GLOB Ratio 1.2 RATIO (0.9-2.4); AST(SGOT) 35 U/L (15-37); Alanine Aminotransfer ALT/SGPT 78 U/L (16-61); Alkaline Phosphatase 113 U/L (45-117); Anion Gap 6 (5-15); BUN 12 mg/dL (7-18); Calcium,Total 9.6 mg/dL (8.5-10.1); Chloride 107 mmol/L (98-107); Cholesterol 131 mg/dL (200); EST Glomerular Filtration Rate 77 mL/min (>60); Est Glom Filt Rate - Afr Amer 94 mL/min (>60); Globulin 3.3 g/dL (2.2-4.2); Glucose 144 mg/dL (74-106); High Density Lipoprotein 56 mg/dL; Potassium 4.4 mmol/L (3.5-5.1); Protein, Total 7.3 g/dL (6.4-8.2); Sodium Level 138 mmol/L (136-145); Triglycerides 85 mg/dL; Very Low Density Lipoprotein 17 mg/dL (5-40)
== END | disposition home or self-care (01) ==
PROVIDERS: Referring Provider Internal Medicine Cardiovascular Disease; Visit Provider Internal Medicine Cardiovascular Disease
DX: I25.10 Atherosclerotic heart disease of native coronary artery without angina pectoris (principal); E78.5 Hyperlipidemia, unspecified; R53.83 Other fatigue; Z95.1 Presence of aortocoronary bypass graft; I10 Essential (primary) hypertension
CPT/HCPCS: 36415; 80053; 80061

== ENCOUNTER 2024-05-25 23:23 | Emergency (ER) | payer MEDICARE, OTHER, SELFPAY ==
[2024-05-25 23:26] VITALS: BP 137/73; PULSE 100; RESP 15; TEMP 36.4; O2SAT 95; BMI 20.7
[2024-05-25 23:48] VITALS: PULSE 93; RESP 16; O2SAT 95
[2024-05-25 23:52] VITALS: BP 143/92; PULSE 97; RESP 19; O2SAT 94
--- NOTE | 2024-05-25 23:52 | EKG12_ITS ---
Test Reason : DYSRHYTHMIA Blood Pressure : */* mmHG Vent. Rate : 93 BPM Atrial Rate : 93 BPM P-R Int : 214 ms QRS Dur : 108 ms QT Int : 370 ms P-R-T Axes : 77 -6 10 degrees QTcB Int : 460 ms Sinus rhythm with 1st degree A-V block with occasional Premature ventricular complexes Incomplete right bundle branch block Nonspecific ST abnormality Abnormal ECG Confirmed by LILIANA LYNN, SARAH ([id number]), supervising film or videotape editor RIKI CRAFT ([id number]) on 05/26/2024 8:16:02 AM Referred By: Confirmed By: SARAH FORD MD
--- NOTE | 2024-05-25 23:53 | EDS_ITS ---
HPI History of Present Illness Chief Complaint: Alt LOC Informant: patient and family Narrative Narrative: 79-year-old male lives alone, family went to check on him at 5 PM, they noticed upon first evaluating him that his speech was abnormally slurred, and he seemed a little bit more confused than normal. He was lying in his bed with no clothes on and his sheets off. When daughter got him up out of bed, he was stumbling. The last time they saw him or heard him with baseline speech and no slurring, it was 6 days ago. The patient does not know when the symptoms started, he thinks he may have had some of these issues yesterday. He cannot provide a good h istory because of his speech and confusion. Family also states that he appeared to have issues swallowing prior to bringing him to the ER, he went to take a drink and then simultaneously look like he was trying to take of breath and then choked and almost aspirated the water. [facility] Medical History Dyslipidemia Nonsustained ventricular tachycardia Hypertension Coronary artery disease Fatigue Non-ST elevation (NSTEMI) myocardial infarction Hyperlipidemia Atherosclerotic heart disease of [place] coronary artery without angina pectoris Sick sinus syndrome Home Medications ?Medication ?Instructions ?Recorded ?Last Taken ?Type aspirin 81 mg tablet,delayed 81 mg PO QHS heart health 07/09/17 Unknown History release (Adult Aspirin Regimen) atenolol 50 mg tablet 50 mg PO BID blood pressure 07/09/17 10/25/17 History losartan 50 mg tablet 50 mg PO QHS blood pressure 07/09/17 10/25/17 History omega-3 acid ethyl esters 1 gram 1 g PO QHS supplement 07/09/17 Unknown History capsule escitalopram oxalate 10 mg tablet 10 mg PO DAILY mental health 07/12/17 Unknown History [id number] 300 mcg-K 60 1 tab PO DAILY vitamin 07/12/17 Unknown History mcg-lycop 600 mcg-lutein 300 mcg tablet (Centrum Silver Men) bupropion HCl 150 mg tablet,12 hr 150 mg PO DAILY 06/10/20 Unknown History sustained-release tamsulosin 0.4 mg capsule 0.4 mg PO QHS prostate 06/10/20 Unknown History clopidogrel 75 mg tablet 75 mg PO DAILY #90 tabs 10/16/21 Unknown Rx isosorbide mononitrate 30 mg 30 mg PO DAILY #90 tabs 10/16/21 Unknown Rx tablet,extended release 24 hr magnesium oxide 420 mg tablet 420 mg PO DAILY 09/01/23 Unknown History diltiazem HCl 120 mg capsule,24 120 mg PO DAILY #90 caps 11/11/23 Unknown Rx hr,extended release cholecalciferol (vitamin D3) 125 125 mcg PO QDAY 02/29/24 Unknown History mcg (5,000 unit) capsule rosuvastatin 20 mg tablet (Crestor) 20 mg PO DAILY 05/26/24 Unknown History Allergy/AdvReac Type Severity Reaction Status Date / Time lisinopril AdvReac Intermediate Other Verified 05/25/24 23:24 Family History Father , Age 76 Myocardial infarction CAD (coronary artery disease) Mother , Age 63, breast cancer Breast cancer Sister Diabetes benign tumor in brain removed Surgical History Cardiac pacemaker in situ History of coronary artery bypass graft x 3 (~10/16/90) History of left heart catheterization (~09/16/21) Stented coronary artery (~06/29/12) Social History (Updated 05/25/24 @ 23:[address] Jamarcus Michael MD) household members: none Smoking Status: Former smoker pack-years: 25 alcohol intake: current alcohol intake frequency: holidays/special occasions only substance use type: does not use caffeine: Yes Type: coffee Number of servings: 2 what type of physical activity do you participate in: none ROS ROS ED Review of Systems ROS Unobtainable: due to mental status EXAM Physical Exam Const Vital Signs: 05/25/24 23:26 05/25/24 23:48 05/25/24 23:52 Temperature 97.5 F L Temperature Source Oral Pulse Rate 100 93 Respiratory Rate 15 16 Blood Pressure 137/73 H Blood Pressure Mean 94 Pulse Ox 95 95 Oxygen Delivery Method Room Air 05/25/24 23:52 05/26/24 00:00 05/26/24 00:00 Temperature Temperature Source Pulse Rate 97 Respiratory Rate 19 H Blood Pressure 143/92 H 134/85 H 134/85 H Blood Pressure Mean 109 100 100 Pulse Ox 94 93 Oxygen Delivery Method Room Air 05/26/24 00:15 05/26/24 00:30 05/26/24 00:32 Temperature 97.7 F L Temperature Source Oral Pulse Rate 93 Respiratory Rate 17 Blood Pressure 132/88 H 136/93 H 134/78 H Blood Pressure Mean 102 104 96 Pulse Ox 94 95 94 Oxygen Delivery Method Room Air 05/26/24 00:45 05/26/24 01:00 05/26/24 01:00 Temperature 97.6 F L Temperature Source Oral Pulse Rate 93 96 Respiratory Rate 19 H 15 Blood Pressure 105/76 136/87 H 136/87 H Blood Pressure Mean 86 103 103 Pulse Ox 94 94 Oxygen Delivery Method Room Air 05/26/24 01:15 05/26/24 01:30 05/26/24 01:45 Temperature Temperature Source Pulse Rate 95 93 Respiratory Rate 17 18 Blood Pressure 134/78 H 144/87 H 118/76 Blood Pressure Mean 96 101 87 Pulse Ox 95 95 Oxygen Delivery Method 05/26/24 02:00 05/26/24 02:00 05/26/24 02:08 Temperature 97.5 F L Temperature Source Oral Pulse Rate 86 93 Respiratory Rate 17 15 Blood Pressure 135/80 H 129/61 H Blood Pressure Mean 98 78 Pulse Ox 95 94 Oxygen Delivery Method Room Air 05/26/24 02:15 05/26/24 02:30 05/26/24 02:45 Temperature Temperature Source Pulse Rate 90 82 93 Respiratory Rate 23 H 18 14 Blood Pressure 135/80 H 128/97 H 128/87 H Blood Pressure Mean 91 107 99 Pulse Ox 94 95 Oxygen Delivery Method 05/26/24 03:00 05/26/24 03:00 05/26/24 04:00 Temperature 97.8 F Temperature Source Oral Pulse Rate 85 88 81 Respiratory Rate 15 16 16 Blood Pressure 105/63 105/63 Blood Pressure Mean 77 72 Pulse Ox 93 95 Oxygen Delivery Method Room Air Room Air 05/26/24 06:00 Temperature Temperature Source Pulse Rate 93 Respiratory Rate 19 H Blood Pressure 120/72 Blood Pressure Mean 88 Pulse Ox 94 Oxygen Delivery Method Room Air Positive well nourished and well developed General Appearance ED: well developed and NAD HEENT Reports moist mucous membranes normocephalic and atraumatic Eyes PERRL and EOMs intact bilaterally Neck full ROM and supple Resp normal respiratory effort and clear to auscultation bilaterally Cardio Rate: tachycardic GI non-tender and non-distended Auscultation: normoactive bowel sounds Palpation: soft Back/Spine no CVA tenderness General Back: other FROM Extremity normal to inspection General Extremety ED: Negative for edema, pulses abnormal or tenderness General Extremity: Negative for edema or pulses abnormal Neuro CN's II-XII intact bilaterally and no sensory deficits noted Neuro Narrative: Patient is confused. He is able to follow commands. His speech is very slurred and he has aphasia limiting evaluation. Nonlateralizing peripheral neurologic exam no ataxia/dysmetria. Sensorium / Orientation: awake and alert Motor Exam: strength 5/5 throughout Psych Psych Narrative: Flat affect Skin no rashes or lesions noted and no wounds NIHSS NIHSS Initial: 1a Level of Consciousness: 0 1b LOC Questions (Score 2 if aphasic/stupor): 2 1c LOC Commands (Only score 1st attempt): 0 2 Best Gaze (If aphasic, use reflexive mvmts.): 0 3 Visual: 0 4 Facial Palsy: 0 5 Motor Arm Right (UN = amputation/fusion): 0 5 Motor Arm Left: 0 6 Motor Leg Right: 0 6 Motor Leg Left: 0 7 Limb ataxia (Only + if out of proportion): 0 8 Sensory (Aphasia/stupor=0 or 1, coma=2): 0 9 Best Language: 2 10 Dysarthria (mute, coma=2, intubated=UN): 2 11 Extinction and Inattention (only scored if +): 0 Total Score: 6 MDM MDM MDM Narrative Medical decision making narrative: While I was performing evaluation the patient heart rate went up to 150 from about 100. We were not able to capture this on EKG but rhythm strips suggest a narrow complex tachycardia in the 150 range, it is unclear what exactly the rhythm is based on the strips. When he converted out of it he went to sinus tachycardia which was quite plainly visible. Differential includes paroxysmal A-fib with RVR, paroxysmal supraventricular tachycardia, paroxysmal atrial flutter. The CT of his head images I reviewed and report I agree with, I see no intracranial hemorrhage, radiology in agreement with no obvious acute infarct, noting that he may have pneumomediastinum. His chest x-ray is consistent with this as well, without any pneumothorax or focal infiltrate. Therefore he was sent for a CT of the chest. This confirms pneumomediastinum without a radiographically apparent cause; I reviewed the images and the report which I agree with. Other than the symptoms of near aspiration that he had witnessed by family today, has not had any coughing or vomiting that they know of. He has had no recent trauma and no recent upper airway or esophageal procedures. Discussed with hospitalist, who recommends transferring the situation since we do not have cardiothoracic here. Daughter asked me to try [facility], discussed with Dr. Nunes there, who asked me to add a magnesium and empirically give him some potassium and magnesium replacement and attempt to prevent more runs of narrow complex tachycardia which was done, and they accept the patient for transfer. While here the patient had 2 runs of a couple minutes each total while here for over 5-6 hours. Stable for transfer by ground. While awaiting transfer, patient started becoming agitated and his acutely confusional state, pulling off wire leads and he pulled his IV out. I was waiting for his magnesium to come back, we were wanting to give him IV potassium and magnesium infusions and attempt to prevent more tacky dysrhythmias that do not appear to be ventricular tachycardia/wide-complex to me, and so I was avoiding Geodon due to the potential for side effects and QT prolongation and perpetuating dysrhythmias. Therefore he was given Ativan 1 mg IM given that he is already confused. It helped a little but he was still fighting nurses. His magnesium came back normal. At this point to minimize risk to him but to attempt to avoid his interference with care, he was given Haldol 2 mg IM. He has tolerated this well and RNs were able to get IV placement for the ordered infusions. Lab Data Attestation: I reviewed the patient's lab results. Labs: Laboratory Results - last 24 hr 05/25/24 05/26/24 05/26/24 23:36 00:02 00:49 WBC 16.0 H RBC 5.56 Hgb 16.9 H Hct 49.6 MCV 89.2 MCH 30.4 MCHC 34.1 RDW Std Deviation 39.2 RDW Coeff of Hannah 12.0 Plt Count 170 MPV 12.4 H Immature Gran % (Auto) 2.100 H Neut % (Auto) 81.1 H Lymph % (Auto) 7.8 L Caldwell % (Auto) 8.5 Eos % (Auto) 0.3 Baso % (Auto) 0.2 Absolute Neuts (auto) 12.9 H Absolute Lymphs (auto) 1.25 Nucleated RBC % 0 PT 15.5 H INR 1.2 APTT 31.0 Sodium 144 Potassium 3.8 Chloride 109 H Carbon Dioxide 26.0 Anion Gap 10 BUN 33 H Creatinine 1.25 Estim Creat Clear Calc 45.92 Est GFR (MDRD) Af Amer 72 Est GFR (MDRD) Non-Af 60 BUN/Creatinine Ratio 26.4 H Glucose 218 H Calcium 10.2 H Magnesium Troponin I High Sens 48 Urine Color Yellow Urine Clarity Sl. Cloudy Urine pH 6.0 Ur Specific [place] 1.025 Urine Protein 100 H Urine Glucose (UA) Normal Urine Ketones 50 H Urine Occult Blood 25 H Urine Nitrite Negative Urine Bilirubin Negative Urine Urobilinogen 1 H Ur Leukocyte Esterase Negative Urine RBC 0-5 SEEN Urine WBC 0 SEEN Ur Squamous Epith Cells 0-5 SEEN Urine Bacteria RARE Urine Mucus 0 SEEN POC Glucose 193 H 05/26/24 02:52 WBC RBC Hgb Hct MCV MCH MCHC RDW Std Deviation RDW Coeff of Hannah Plt Count MPV Immature Gran % (Auto) Neut % (Auto) Lymph % (Auto) Caldwell % (Auto) Eos % (Auto) Baso % (Auto) Absolute Neuts (auto) Absolute Lymphs (auto) Nucleated RBC % PT INR APTT Sodium Potassium Chloride Carbon Dioxide Anion Gap BUN Creatinine Estim Creat Clear Calc Est GFR (MDRD) Af Amer Est GFR (MDRD) Non-Af BUN/Creatinine Ratio Glucose Calcium Magnesium 2.4 Troponin I High Sens 59 Urine Color Urine Clarity Urine pH Ur Specific [place] Urine Protein Urine Glucose (UA) Urine Ketones Urine Occult Blood Urine Nitrite Urine Bilirubin Urine Urobilinogen Ur Leukocyte Esterase Urine RBC Urine WBC Ur Squamous Epith Cells Urine Bacteria Urine Mucus POC Glucose Radiography Diagnostic Testing: Clinical Impression(s) from Imaging Studies Chest X-Ray 05/25/24 23:59 IMPRESSION: 1. Chronic interstitial parenchymal changes of the lungs 2. Pneumomediastinum Electronically Signed: Francisco Nash MD at 0:44 EST , Chest CT 05/26/24 01:36 IMPRESSION: Large amount of pneumomediastinum consistent with the plain film exam. Air tracking superiorly into the soft tissues of the neck. If there is no history of trauma or upper airway/esophageal procedure, findings may be secondary to coughing, asthma, vomiting. Electronically Signed: Gary Valle MD at 2:46 EST , Brain CT 05/26/24 23:52 IMPRESSION: 1. No acute intracranial abnormality. 2. Moderate bilateral periventricular and subcortical white matter chronic small vessel disease with age appropriate cerebral atrophy. 3. Subcutaneous emphysema within the prevertebral soft tissues and soft tissues of the right neck, likely representing pneumomediastinum. Electronically Signed: Francisco Nash MD at 0:32 EST , Rhythm Strip Rhythm Strip: Sinus Rhythm Rate: 90 Ectopy: PVC(s) EKG Initial EKG: Attestation: I personally reviewed and interpreted this EKG as follows: Interpretation: Sinus Rhythm, No Acute Injury Pattern, RBBB (incomplete) and AV Block (1st deg) Prior EKG tracings: available for review (paced prior) Follow-up EKG: Attestation: I personally reviewed and interpreted this EKG as follows: Interpretation: Sinus Rhythm, No Acute Injury Pattern and AV Block (1st deg) Comments: unchanged c/w prior today Management Discussion w/another healthcare provider: Hospitalist and Director Dietetics Department Stroke Documentation Questions Stroke Team Activated: No (Due to timing, symptoms started more than 24 hours ago, up to 6 days ago) Was Patient considered for Endovascular Intervention?: No-CTA not indicated (due to sx for more than 24 hrs and LKW 6d ago) IV Thrombolytic Administered: No Discharge Plan Triage Chief Complaint: Alt LOC ED Provider: Jamarcus Michael Dx/Rx/DC Orders Clinical Impression: Expressive aphasia, Dysarthria, Pneumomediastinum, Acute confusion, Paroxysmal tachycardia, unspecified Prescriptions: No Action atenolol 50 mg tablet 50 mg PO BID aspirin [Adult Aspirin Regimen] 81 mg tablet,delayed release (DR/EC) 81 mg PO QHS Patient Comments: family not sure if he takes losartan 50 mg tablet 50 mg PO QHS omega-3 acid ethyl esters 1 gram capsule 1 g PO QHS Patient Comments: pt family not sure if taking bupropion HCl 150 mg tablet sustained-release 12 hr 150 mg PO DAILY [id number] [Centrum Silver Men] 300-600-300 mcg tablet 1 tab PO DAILY escitalopram oxalate 10 mg tablet 10 mg PO DAILY tamsulosin 0.4 mg capsule 0.4 mg PO QHS isosorbide mononitrate 30 mg tablet extended release 24 hr 30 mg PO DAILY Qty: 90 3RF Patient Comments: pt family not sure if taking clopidogrel 75 mg tablet 75 mg PO DAILY Qty: 90 3RF magnesium oxide 420 mg tablet 420 mg PO DAILY cholecalciferol (vitamin D3) 125 mcg (5,000 unit) capsule 125 mcg PO QDAY rosuvastatin [Crestor] 20 mg tablet 20 mg PO DAILY diltiazem HCl 120 mg capsule,extended release 24 hr 120 mg PO DAILY Qty: 90 3RF [facility] [Primary Care Provider] - Print Language: Telugu Disposition Disposition: Acute Care Hospital Discharge Location: [facility]
--- NOTE | 2024-05-25 23:59 | RAD_ITS ---
EXAM: XR Chest 1 View INDICATION: Male, 79 years old. Neuro deficit, acute, stroke suspected TECHNIQUE: Single AP view COMPARISON: 05/29/2023 FINDINGS: DEVICES: None LUNGS: No confluent air space opacity. Coarsened prominence of interstitial lung markings noted throughout bilateral mid lungs and lung bases, unchanged. nodule. No pleural effusion or pneumothorax. MEDIASTINUM: Borderline cardiomegaly. Median sternotomy wires and coronary artery bypass graft clips noted. Left subclavian pacemaker in place. Pneumomediastinum noted. . SKELETAL STRUCTURES: No acute skeletal abnormality. Mild multilevel degenerative changes in the spine. UPPER ABDOMEN: Unremarkable RAD/Chest 1 View IMPRESSION: 1. Chronic interstitial parenchymal changes of the lungs 2. Pneumomediastinum Electronically Signed: Francisco Nash MD at 0:44 EST ,
[2024-05-26] VITALS (26 sets, daily range): BP systolic 105–168; BP diastolic 61–97; PULSE 70–96; RESP 14–23; TEMP 36.4–36.6; O2SAT 93–98
[2024-05-26 00:09] LABS: International Normalized Ratio 1.2; Prothrombin Time (Protime)PT. 15.5 SECONDS (11.7-14.9)
[2024-05-26 00:19] LABS: Absolute Lymphocyte Count 1.25 X10^3/uL (0.83-4.51); Absolute Neutrophil Count 12.9 X10^3/uL (2.0-7.7); Basophil# 0.03 X10^3/uL; Basophil% 0.2 % (0-1); Eosinophil# 0.05 X10^3/uL; Eosinophils% 0.3 % (0-5); Hematocrit 49.6 % (40-54); Hemoglobin 16.9 g/dL (13.0-16.5); Lymphocyte # 1.25 X10^3/ul (0.83-4.51); Lymphocyte % 7.8 % (19-41); Mean Corp Hgb Conc 34.1 g/dL (32-36); Mean Corpuscular Hgb 30.4 pg (27.0-32.0); Mean Corpuscular Volume 89.2 fL (80-94); Mean Platelet Vol. 12.4 fl (6.2-12.0); Monocyte# 1.36 X10^3/uL; Monocyte% 8.5 % (0-10); NRBC Flagged by Analyzer 0 % (0-5); Neutrophil # 12.93 X10^3/uL (2.7-7.7); Neutrophil % 81.1 % (47-70); Platelet Count 170 K/mm3 (150-450); RBC Distribution Width SD 39.2 fl (35.1-43.9); Red Blood Count 5.56 M/mm3 (4.6-6.2)
[2024-05-26 00:20] LABS: Anion Gap 10 (5-15); BUN 33 mg/dL (7-18); BUN/Creat Ratio 26.4 RATIO (10-20); Calcium,Total 10.2 mg/dL (8.5-10.1); Chloride 109 mmol/L (98-107); Creatinine, Serum 1.25 mg/dL (0.70-1.30); EST Glomerular Filtration Rate 60 mL/min (>60); Est Glom Filt Rate - Afr Amer 72 mL/min (>60); Estimated Creatinine Clearance 45.92 ml/min; Glucose 218 mg/dL (74-106); Potassium 3.8 mmol/L (3.5-5.1); Sodium Level 144 mmol/L (136-145); Troponin-I HS 48 pg/mL (3.0-78.0)
[2024-05-26 00:21] LABS: Bedside Glucose 193 mg/dL (74-106)
[2024-05-26 00:55] LABS: Mucous, Urine 0 SEEN /hpf (<or=2+); White Blood Cells 0 SEEN /hpf (0-5)
[2024-05-26 00:57] LABS: Color, Urine Yellow (Yellow); Glucose, Dipstick Normal (Normal); Ketone-Dipstick 50 mg/dl (Negative); Leukocyte Esterase-Dipstick Negative /ul (Negative); Nitrite-Dipstick Negative (Negative); Occult Blood-Urine 25 /ul (Negative); Protein-Dipstick 100 mg/dl (Negative); Specific Gravity, Urine 1.025 (1.002-1.030); Urine Bilirubin Dipstick Negative (Negative); Urine Clarity Sl. Cloudy (Clear); Urine Urobilinogen 1 mg/dl (Normal)
[2024-05-26 01:05] LABS: Bacteria RARE /hpf (None Seen); Red Blood Cells-Urine 0-5 SEEN /hpf (0-5); Squamous Epithelial Cells - UA 0-5 SEEN /hpf (0-5)
--- NOTE | 2024-05-26 01:36 | CT_ITS ---
EXAM: CT CHEST WITHOUT INTRAVENOUS CONTRAST CLINICAL INDICATION: pneumomediastinum TECHNIQUE: Helically acquired images were obtained of the chest without intravenous contrast. This CT exam was performed using one or more of the following dose reduction techniques: automated exposure control, adjustment of the mA and/or kV according to patient size, and/or use of iterative reconstruction technique. RADIATION DOSE: CTDIvol = 14.51 mGy, DLP = 532.89 mGy-cm COMPARISON: Single view chest from same date. FINDINGS: LUNGS AND PLEURAL SPACES: Peripheral scarring/fibrosis throughout the pulmonary parenchyma. No mass. No pleural effusion or thickening. No pneumothorax. HEART: Coronary artery calcifications. Heart size is normal. No pericardial effusion. MEDIASTINUM: Large amount of pneumomediastinum consistent with the plain film exam. No fluid collection in the mediastinum. Surgical changes of the mediastinum. No mediastinal or hilar adenopathy. Esophagus is unremarkable. No hiatal hernia. THYROID: Unremarkable. No thyroid lesions. BONES/JOINTS: Degenerative changes of the spine. No suspicious lytic or blastic abnormality. SOFT TISSUES: Air tracking superiorly into the soft tissues of the neck. VASCULATURE: Atherosclerotic calcifications of the thoracic aorta. TUBES, LINES AND DEVICES: Left chest pacer. CT/Chest without Contrast IMPRESSION: Large amount of pneumomediastinum consistent with the plain film exam. Air tracking superiorly into the soft tissues of the neck. If there is no history of trauma or upper airway/esophageal procedure, findings may be secondary to coughing, asthma, vomiting. Electronically Signed: Gary Valle MD at 2:46 EST ,
[2024-05-26 03:46] LABS: Troponin-I HS 59 pg/mL (3.0-78.0)
--- NOTE | 2024-05-26 04:40 | ED.RN ---
Pt moved to room 4 to be closer to nurses station after pt pulled out IV despite having redirection several times and having a family member at the bedside. Pt refusing to let staff members help him and attempting to kick staff. notified, see TAMI orders
[2024-05-26 04:47] LABS: Magnesium 2.4 mg/dL (1.6-2.6)
[2024-05-26] MEDS: LORazepam 2 MG/ML Syringe 1 MG IM (04:49)
[2024-05-26] MEDS: Haloperidol Lactate 5 MG/ML Vial 2 MG IM (05:29)
[2024-05-26] MEDS: Magnesium Sulfate 2 GM in Dextrose 5%-Water (100mL Bag) 100 ML IV (06:05)
[2024-05-26] MEDS: Potassium Chloride 10mEq/100mL 10 MEQ/100 ML IV.SOLN. 100 MEQ IV BOLUS (06:06)
--- NOTE | 2024-05-26 07:35 | ED.RN ---
pt sedated from haldol. breathing even and unlabored., no distres noted. does stir with touch but does not open eyes. unable to complete NIH
--- NOTE | 2024-05-26 09:53 | ED.RN ---
updated family, continue to wait on bed at [facility].
--- NOTE | 2024-05-26 10:35 | ED.RN ---
recieved accepting at 0420 per report. no bed or prospective time at this point. dr hillman aware and hospitalist paged
--- NOTE | 2024-05-26 10:43 | NURSING ---
PER ESPINOZA, STILL WAITING FOR A BED ON THE STROKE UNIT.
--- NOTE | 2024-05-26 11:09 | ED.RN ---
lela gave update. should have bed today. pt to remain in ed for transfer. family updated
--- NOTE | 2024-05-26 13:29 | ED.RN ---
report called to SHELIA Lovelace at [phone]
--- NOTE | 2024-05-26 23:52 | CT_ITS ---
STUDY: CT BRAIN WITHOUT CONTRAST REASON FOR EXAM: Male, 79 years old. Acute neuro deficit TECHNIQUE: Transaxial CT imaging of the brain was performed without administration of intravenous contrast material. Individualized dose optimization techniques were used for this CT. COMPARISON: 11/25/2005 FINDINGS: Normal soft tissue structures. Normal calvarium. There is mild cerebral atrophy with widening of the extra-axial spaces and ventricular dilatation. There is moderate bilateral periventricular and subcortical white matter hypoattenuation which is symmetric in distribution. Normal basal ganglia and thalami. Normal brainstem. Normal cerebellum. There is no intracranial hemorrhage. There are no findings of an acute ischemic infarction. Normal visualized paranasal sinuses. There is extensive subcutaneous emphysema within the prevertebral soft tissues and soft tissues of the right neck. CT/Brain/Head without Contrast IMPRESSION: 1. No acute intracranial abnormality. 2. Moderate bilateral periventricular and subcortical white matter chronic small vessel disease with age appropriate cerebral atrophy. 3. Subcutaneous emphysema within the prevertebral soft tissues and soft tissues of the right neck, likely representing pneumomediastinum. Electronically Signed: Francisco Nash MD at 0:32 EST ,
== END 2024-05-26 16:01 | disposition short-term general hospital (02) ==
PROVIDERS: Emergency Provider Emergency Medicine; Visit Provider Emergency Medicine
DX: R47.01 Aphasia (principal); J98.2 Interstitial emphysema; I47.9 Paroxysmal tachycardia, unspecified; I25.10 Atherosclerotic heart disease of native coronary artery without angina pectoris; R41.0 Disorientation, unspecified; R47.1 Dysarthria and anarthria; Z87.891 Personal history of nicotine dependence; E78.5 Hyperlipidemia, unspecified; I10 Essential (primary) hypertension; I25.2 Old myocardial infarction; Z79.82 Long term (current) use of aspirin; Z79.899 Other long term (current) drug therapy; Z79.02 Long term (current) use of antithrombotics/antiplatelets; Z95.0 Presence of cardiac pacemaker; Z95.5 Presence of coronary angioplasty implant and graft; R45.1 Restlessness and agitation
CPT/HCPCS: 70450; 71045; 71250; 80048; 81001; 82962; 83735; 84484; 85025; 85610; 85730; 93005; 96365; 96366; 96368; 96372; 99285; P9612; A4216